=== PATIENT | female | born 2000 | race Caucasian/White ===

== ENCOUNTER → 2020-04-06 17:48 | Outpatient (CLI) | payer MEDICAID, SELFPAY ==
[2020-04-06 19:51] LABS: Chlamydia Trachomatis by PCR Negative (Negative); Neisserai gonorrhoeae by PCR Negative (Negative); Probe Check PASS; Sample Adequacy Control PASS; Specimen Processing Control PASS
== END ==
PROVIDERS: Referring Provider Obstetrics & Gynecology; Visit Provider Obstetrics & Gynecology
DX: Z11.3 Encounter for screening for infections with a predominantly sexual mode of transmission (principal)
CPT/HCPCS: 87491; 87591

== ENCOUNTER 2020-09-06 02:41 | Emergency (ER) | payer MEDICAID, SELFPAY ==
[2020-09-06 02:44] VITALS: BP 133/85; PULSE 146; RESP 18; TEMP 36.6; O2SAT 98; BMI 21.9
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
[2020-09-06] MEDS: Acetaminophen 325 MG Tablet 650 MG PO (03:02)
[2020-09-06 03:51] VITALS: BP 132/78; PULSE 88; RESP 18; O2SAT 99
== END 2020-09-06 03:53 | disposition home or self-care (01) ==
PROVIDERS: Emergency Provider Emergency Medicine
CPT/HCPCS: 73090; 73130; 99281; 99283

== ENCOUNTER → 2020-11-02 14:05 | Outpatient (CLI) | payer MEDICAID, SELFPAY ==
[2020-11-02 14:56] LABS: Absolute Lymphocyte Count 2.24 X10^3/uL (0.83-4.51); Absolute Neutrophil Count 4.8 X10^3/uL (2.0-7.7); Basophil# 0.04 X10^3/uL; Basophil% 0.5 % (0-1); Eosinophil# 0.67 X10^3/uL; Eosinophils% 8.1 % (0-5); Hematocrit 35.9 % (37-47); Hemoglobin 11.9 g/dL (12.0-15.0); Lymphocyte # 2.24 X10^3/ul (4.0); Lymphocyte % 27.1 % (19-41); Mean Corp Hgb Conc 33.1 g/dL (32-36); Mean Corpuscular Hgb 29.7 pg (27.0-32.0); Mean Corpuscular Volume 89.5 fL (81-99); Mean Platelet Vol. 9.7 fl (6.2-12.0); Monocyte# 0.49 X10^3/uL; Monocyte% 5.9 % (0-10); NRBC Flagged by Analyzer 0 % (0-5); Platelet Count 285 K/mm3 (150-450); RBC Distribution Width CV 12.8 % (11.6-14.6); RBC Distribution Width SD 42.1 fl (35.1-43.9); Red Blood Count 4.01 M/mm3 (4.2-5.4); White Blood Count 8.3 K/mm3 (4.4-11.0)
[2020-11-02 15:18] LABS: Thyroid Stim Hormone (TSH) 1.25 uIU/mL (0.358-3.74)
[2020-11-02 15:28] LABS: Color, Urine Yellow (Yellow); Glucose, Dipstick Normal (Normal); Ketone-Dipstick Negative (Negative); Leukocyte Esterase-Dipstick Negative /ul (Negative); Nitrite-Dipstick Negative (Negative); Occult Blood-Urine Negative /ul (Negative); Protein-Dipstick Negative (Negative); Urine Bilirubin Dipstick Negative (Negative); Urine Clarity Sl. Cloudy (Clear); Urine Urobilinogen Normal (Normal)
[2020-11-02 15:48] LABS: Amphetamine Urine VISTA NEGATIVE (<1000 ng/mL); Barbiturate Urine VISTA NEGATIVE (< 200 ng/mL); Benzodiazepine Urine VISTA NEGATIVE (< 200 ng/mL); Cocaine Urine VISTA NEGATIVE (< 300 ng/mL); Ecstacy Urine VISTA NEGATIVE (< 500 ng/mL); HIV - WCH Non-Reactive (Nonreactive); Hepatitis B Surface Antigen Non-Reactive (Nonreactive); Hepatitis C Antibody Non-Reactive (Nonreactive); Methadone Urine VISTA NEGATIVE (< 300 ng/mL); PCP Urine VISTA NEGATIVE (< 25 ng/mL); Rubella IgG Reactive (Nonreactive); THC Urine VISTA NEGATIVE (< 50 ng/mL); Vista UDS pH Range 7
[2020-11-08 02:38] LABS: Prenatal RPR NONREACTIVE (NONREACTIVE)
[2020-11-09 12:07] LABS: Chlamydia By Nucleic Acid AMP Negative (Negative); Gonococcus By Nucleic Acid AMP Negative (Negative)
[2020-11-09 12:54] LABS: CF, Screen Comment: (.)
== END ==
PROVIDERS: Visit Provider Obstetrics & Gynecology
DX: Z34.81 Encounter for supervision of other normal pregnancy, first trimester (principal); Z36.85 Encounter for antenatal screening for Streptococcus B
CPT/HCPCS: 36415; 80307; 81002; 81220; 84443; 85025; 86703; 86762; 86803; 87340; 87491; 87591

== ENCOUNTER 2021-02-01 19:30 | Outpatient (CLI) | payer MEDICAID, SELFPAY ==
[2021-02-01] VITALS (9 sets, daily range): BP systolic 107–119; BP diastolic 55–70; PULSE 86–98; TEMP 37.4; O2SAT 97–99; BMI 29.7
[2021-02-01] MEDS: Lactated Ringers 500 ML 999 ML IV (21:10)
[2021-02-01] MEDS: Acetaminophen/Butalbital/Caffe 1 Tablet 2 TABLET PO (21:16)
[2021-02-01 21:28] LABS: Color, Urine Yellow (Yellow); Glucose, Dipstick Normal (Normal); Ketone-Dipstick Negative (Negative); Leukocyte Esterase-Dipstick Negative /ul (Negative); Nitrite-Dipstick Negative (Negative); Occult Blood-Urine Negative /ul (Negative); Protein-Dipstick Negative (Negative); Urine Bilirubin Dipstick Negative (Negative); Urine Clarity Clear (Clear); Urine Urobilinogen Normal (Normal); Urine pH 6.5 (5.0 - 8.0)
--- NOTE | 2021-02-02 05:02 | PCM.PN.BLA ---
Progress Note Triage visit: 20-year-old G2, P1 at 27/3 weeks presenting with headache and dizziness. Patient was not feeling well this afternoon at work she took her blood pressure which was noted to be 160/112. Patient was then advised to come to labor and delivery for evaluation. She reported headache which had not resolved with Tylenol x1. Denies other symptoms including nausea, vomiting, right upper quadrant pain, visual changes. Patient was given Fioricet and 500 cc LR bolus after which she felt much improved and headache was better. Blood pressures were within normal limits. heart rate: 135/moderate variability/positive accelerations/no deceleration [place]: Quiet Patient did have 1 variable deceleration immediately upon admission, 2 further hours of monitoring following noted no further variable decelerations. Therefore status is reassuring with moderate variability and a normal baseline, and accelerations. No evidence or concerns for preeclampsia at this time as blood pressures were normotensive and she was otherwise asymptomatic. Headache resolved with Fioricet. Patient discharged home with precautions. Reassuring status. She has appointment in the office next week.
== END 2021-02-01 22:15 | disposition home or self-care (01) ==
LOC: WPOUT 19:36 → WP 19:36
PROVIDERS: Visit Provider Student in an Organized Health Care Education/Training Program
DX: O26.892 Other specified pregnancy related conditions, second trimester (principal); R51.9 Headache, unspecified; Z3A.27 27 weeks gestation of pregnancy
CPT/HCPCS: 96365; 59050; 81002; 99218; J7120; G0378

== ENCOUNTER → 2021-02-08 09:49 | Outpatient (CLI) | payer MEDICAID, SELFPAY ==
[2021-02-01 20:46] VITALS: BMI 29.7
[2021-02-08 14:07] LABS: Hematocrit 35.6 % (37-47); Hemoglobin 11.6 g/dL (12.0-15.0); Mean Corp Hgb Conc 32.6 g/dL (32-36); Mean Corpuscular Hgb 29.1 pg (27.0-32.0); Mean Corpuscular Volume 89.2 fL (81-99); Mean Platelet Vol. 9.7 fl (6.2-12.0); Platelet Count 340 K/mm3 (150-450); RBC Distribution Width SD 39.5 fl (35.1-43.9); Red Blood Count 3.99 M/mm3 (4.2-5.4); White Blood Count 10.6 K/mm3 (4.4-11.0)
[2021-02-08 14:14] LABS: Glucose Challenge Gest 1H 50g 115 mg/dL (70-140)
== END ==
PROVIDERS: Visit Provider Obstetrics & Gynecology
DX: Z34.82 Encounter for supervision of other normal pregnancy, second trimester (principal)
CPT/HCPCS: 36415; 82950; 85027

== ENCOUNTER 2021-02-28 20:25 | Outpatient (CLI) | payer MEDICAID, SELFPAY ==
[2021-02-01 20:46] VITALS: BMI 29.7
[2021-02-28 20:37] VITALS: BP 116/69; PULSE 94; TEMP 36.7; O2SAT 97
[2021-02-28 20:40] VITALS: BMI 31.2
[2021-02-28 20:54] LABS: Color, Urine Yellow (Yellow); Glucose, Dipstick Normal (Normal); Ketone-Dipstick Negative (Negative); Leukocyte Esterase-Dipstick Negative /ul (Negative); Nitrite-Dipstick Negative (Negative); Occult Blood-Urine Negative /ul (Negative); Protein-Dipstick Negative (Negative); Urine Bilirubin Dipstick Negative (Negative); Urine Clarity Clear (Clear); Urine Urobilinogen Normal (Normal); Urine pH 6.5 (5.0 - 8.0)
--- NOTE | 2021-03-05 08:42 | OB.TRI.HP_ITS ---
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 LABOR Date of Service: 02/28/21 Final RAMAN: 04/30/21 Final RAMAN Source: US <20 weeks Gestational age: 32 Weeks and 0 Days History of Present Illness: Pt arrives with cramping and back pain Allergies escitalopram [From Lexapro] Allergy (Verified 02/28/21 20:40) Hives Laboratory Studies: Laboratory Tests 02/28/21 Range/Units 20:30 Urine Color Yellow (Yellow) Urine Clarity Clear (Clear) Urine pH 6.5 (5.0 - 8.0) Ur Specific [place] 1.020 (1.002-1.030) Urine Protein Negative (Negative) mg/dl Urine Glucose (UA) Normal (Normal) mg/dl Urine Ketones Negative (Negative) mg/dl Urine Occult Blood Negative (Negative) /ul Urine Nitrite Negative (Negative) Urine Bilirubin Negative (Negative) mg/dL Urine Urobilinogen Normal (Normal) mg/dl Ur Leukocyte Esterase Negative (Negative) /ul Physical Exam Vitals: Vital Signs Temp Pulse BP Pulse Ox 98.0 F 94 116/69 97 02/28/21 20:37 02/28/21 20:37 02/28/21 20:37 02/28/21 20:37 NST - FHR Rate Baby A Baseline: 130 Variability:: Moderate Accelerations:: 15 x 15 Decelerations:: None NST Reactive:: Yes Uterine Activity:: quiet Impression/Plan 20yo at 31/2 with back pain, ruled out labor. D/c home and follow up at scheduled appointments.
== END 2021-02-28 21:35 | disposition home or self-care (01) ==
PROVIDERS: Referring Provider Obstetrics & Gynecology; Visit Provider Obstetrics & Gynecology
DX: O47.03 False labor before 37 completed weeks of gestation, third trimester (principal); M54.9 Dorsalgia, unspecified; Z3A.32 32 weeks gestation of pregnancy
CPT/HCPCS: 59025; 59050; 81002; 99218; G0378

== ENCOUNTER 2021-04-01 17:00 | Outpatient (CLI) | payer MEDICAID, SELFPAY ==
[2021-04-01 17:11] VITALS: BP 130/79; PULSE 86; TEMP 37.2
[2021-04-01 17:42] LABS: ROM Internal Control Test YES-OK TO RESULT pt. (Internal QC); ROM Patient Test Negative (Negative)
--- NOTE | 2021-04-01 19:05 | OB.TRI.NOTE ---
HPI - General HPI Narrative LEWIS HARMON, is a 20 F who presents triage with leakage of fluid PFSH Home Medications vit no.[id number] 1 ea PO DAILY 09/06/20 [History Last Taken 02/28/21 10:00] Allergy/AdvReac Type Severity Reaction Status Date / Time escitalopram [From Lexapro] Allergy Hives Verified 02/28/21 20:40 Social History Smoking Status: Current every day smoker History Elective abortions Hx Para 0 Spontaneous abortions Hx # Term Pregnancies Ectopic pregnancies Hx # Pregnancies Multiple births # of living children NST FHR Rate Baby A Baseline: 140 Variability:: Moderate Accelerations:: 15 x 15 Decelerations:: None NST Reactive:: Yes Uterine Activity:: quiet Assessment & Plan Assessment/Plan (1) : PLAN: Patient arrived to triage with leakage of fluid at 35 weeks and 6 days ROM negative and NST reactive. All reassuring. Will discharge home with follow-up at scheduled appointments.
--- NOTE | 2021-04-15 08:25 | PCM.PN.BLA ---
Progress Note Triage visit: at 35/6 presenting with leaking of fluid. ROM negative. NST: 135/mod roscoe/+accel/no decel, toco quiet. Discharge home with precautions. Follow up in office routine
== END 2021-04-01 17:55 | disposition home or self-care (01) ==
LOC: WPOUT 17:09 → WP 17:10
PROVIDERS: Referring Provider Student in an Organized Health Care Education/Training Program; Visit Provider Student in an Organized Health Care Education/Training Program
DX: O99.333 Smoking (tobacco) complicating pregnancy, third trimester (principal); F17.200 Nicotine dependence, unspecified, uncomplicated; Z3A.35 35 weeks gestation of pregnancy
CPT/HCPCS: 59025; 59050; 84112; 99218; G0378

== ENCOUNTER → 2021-04-04 16:49 | Outpatient (CLI) | payer MEDICAID, SELFPAY | PROVIDERS: Visit Provider Obstetrics & Gynecology | DX: Z36.85 Encounter for antenatal screening for Streptococcus B (principal) | CPT/HCPCS: 87081 ==

== ENCOUNTER 2021-04-16 23:52 | Inpatient (IN) | payer MEDICAID, SELFPAY ==
[2021-04-16 23:44] VITALS: TEMP 36.9; O2SAT 96
[2021-04-16 23:45] VITALS: BP 131/76; PULSE 91; O2SAT 92
[2021-04-16 23:54] VITALS: BMI 33.6
[2021-04-17] VITALS (50 sets, daily range): BP systolic 96–169; BP diastolic 50–80; PULSE 73–113; RESP 16; TEMP 36.7–37.7; O2SAT 84–99
--- NOTE | 2021-04-17 | PLAC_PTH ---
PATIENT: LEWIS HARMON LOC: [facility] U#:[id number] AGE/SX: 20/F ROOM: WP014 RE04/16/[address]: Dr. Mira Ng MD : 2000 BED: 1 DIS: 04/18/2021 SPEC #: [id number] RECD: 04/17/21 02:59 STATUS: SASHA REMisty #: [id number] PAXTON: 04/17/21 00:[address]: Mira Houser DEPT: SURGICAL PATHOLOGY RECD BY: Rachid Pindea ENTERED: 04/17/21 08:56 SP TYPE: PLACENTA OTHR DR: No Primary Care Phys Tissues: Placenta, NOS Procedures: Surgery Specimen Level V HEADER OPERATION: Vaginal delivery PRE-OP DIAGNOSIS: Suspected IUGR TISSUE SUBMITTED: Placenta MICROSCOPIC DIAGNOSIS Patricio placenta (330 gm): Umbilical cord ? trivascular with no inflammation and with focal dystrophic microcalcifications. Peripheral membranes ? no pathologic change. Placental disc ? remote infarct, increased intraparenchymal microcalcifications and Rodrigo-Dandre change. AM:dickson 04/19/2021 MICROSCOPIC DESCRIPTION Slides are reviewed. GROSS DESCRIPTION SPECIMEN: PLACENTA / CLINICAL INFORMATION: A. Weight: 2.605 kg B. Gestational Age: 38 weeks C. Sex: Male PLACENTAL WEIGHT (POST FIXATION): 330 gm PLACENTAL DIMENSIONS: 15 x 13 x 3 cm PLACENTAL SHAPE: Usual ovoid PLACENTAL WEIGHT FOR GESTATIONAL AGE: Within 10-99th percentile MEMBRANES - Present A. Insertion: Marginal B. Site of rupture from edge: 3 cm from edge of placental disc C. Color of membrane: Damian-mucoidy D. Abnormalities: None UMBILICAL CORD - Present A. Color: Damian-hitchcock B. Insertion: Central C. Length: 29 cm D. Diameter: 1.5 cm E. Number of vessels: Three F. Abnormalities: None PLACENTAL DISC - Present A. Color of surface: Damian-hitchcock B. surface abnormalities: None C. Maternal cotyledons: Intact with minimal tears D. Attached retro placental clot: No clot E. Cut surface: Dark red and spongy F. Lesions: Sections reveal a damian, indurated lesion in the peripheral portion of the placenta measuring 1.5 cm in greatest dimension. G. Separate clot: Absent SECTIONS SUBMITTED: 1. Membrane roll 2. Cord, maternal end 3. Cord, end 4. Placental disc, and maternal surfaces, lesion 5. Placental disc, and maternal surfaces 6. Placental disc, and maternal surfaces SJ:dickson 04/18/21 TC:5 CPT: 01735
[2021-04-17] MEDS: 0.9% Saline Lock 10 ML Syringe IV (00:10)
[2021-04-17] MEDS: Lactated Ringers 500 ML 999 ML IV (00:10)
[2021-04-17 00:24] LABS: Absolute Lymphocyte Count 3.47 X10^3/uL (0.83-4.51); Absolute Neutrophil Count 8.4 X10^3/uL (2.0-7.7); Basophil# 0.06 X10^3/uL; Basophil% 0.4 % (0-1); Eosinophil# 0.98 X10^3/uL; Eosinophils% 6.9 % (0-5); Hematocrit 35.4 % (37-47); Hemoglobin 11.4 g/dL (12.0-15.0); Lymphocyte # 3.47 X10^3/ul (0.83-4.51); Lymphocyte % 24.5 % (19-41); Mean Corp Hgb Conc 32.2 g/dL (32-36); Mean Corpuscular Hgb 27.3 pg (27.0-32.0); Mean Corpuscular Volume 84.9 fL (81-99); Mean Platelet Vol. 9.9 fl (6.2-12.0); Monocyte# 1.09 X10^3/uL; Monocyte% 7.7 % (0-10); NRBC Flagged by Analyzer 0 % (0-5); Neutrophil # 8.43 X10^3/uL (2.7-7.7); Neutrophil % 59.7 % (47-70); Platelet Count 355 K/mm3 (150-450); RBC Distribution Width CV 13.1 % (11.6-14.6); Red Blood Count 4.17 M/mm3 (4.2-5.4); White Blood Count 14.1 K/mm3 (4.4-11.0)
[2021-04-17] MEDS: Lactated Ringers 1,000 ML 200 ML IV (00:47)
--- NOTE | 2021-04-17 00:51 | PCM.HP.OB ---
HPI - General General Date of Admission: 04/16/21 HPI Narrative LEWIS HARMON, is a 20 F @ 38 1/7 wga who presents in l<del>a</del>bor Maternal Data Information RAMAN Calculator Estimated Delivery Date Method Current WG Current Estimate 04/30/21 Manual 39w 0d Final RAMAN: 04/30/21 Final RAMAN Source: US <20 weeks Gestational age: 38.1 [facility] Medical History (Updated 04/18/21 @ 07:[address] Kenny Ching MD) Anxiety Depression Gestational hypertension IUGR (intrauterine growth restriction) depression Home Medications vit [id number] 1 ea PO DAILY 09/06/20 [History Last Taken 04/16/21] Allergy/AdvReac Type Severity Reaction Status Date / Time escitalopram [From Lexapro] Allergy Hives Verified 04/16/21 23:57 Family History Mother Hypertension no surgical history Social History Smoking Status: Current every day smoker History 2 Elective abortions 0 Hx Para 1 Spontaneous abortions 0 Hx # Term Pregnancies 1 Ectopic pregnancies 0 Hx # Pregnancies 0 Multiple births 0 # of living children 1 Vital Signs Vital Signs Vital Signs: 04/16/21 23:44 04/16/21 23:45 04/17/21 00:36 Temperature 98.4 F Temperature Source Temporal Pulse Rate 91 91 Blood Pressure 131/76 H BP Systolic 131 BP Diastolic 76 Pulse Ox 96 92 98 04/17/21 00:41 04/17/21 00:46 04/17/21 00:49 Temperature Temperature Source Pulse Rate 96 85 85 Blood Pressure 169/80 H BP Systolic 169 BP Diastolic 80 Pulse Ox 97 99 Weight Weight: 78.1 kg Body Mass Index (BMI) 33.6 Physical Exam Const alert, oriented x3 and no apparent distress HEENT normocephalic Resp normal respiratory effort, normal air movement and clear to auscultation bilaterally Cardio regular rate and regular rhythm GI normal to inspection, nondistended, normoactive bowel sounds, soft to palpation, non-tender and non-distended Inspection: gravid Manual OB Exam: dilated 6cm Labs Labs Labs: Blood Type A POSITIVE Antibody Screen NEGATIVE Hct 35.4 % (37-47) L Hgb 11.4 g/dL (12.0-15.0) L Rubella IgG Antibody Reactive (Nonreactive) Hep Bs Antigen Non-Reactive (Nonreactive) Neisseria gonorrhoeae DNA (GINA) Negative (Negative) HIV 1&2 Antibody Non-Reactive (Nonreactive) C.trachomatis DNA (PCR) Negative (Negative) Glucose 1 Hr 50 gm 115 mg/dL (70-140) Group B Strep DNA Negative (Negative) Rhogam given: No Miscellaneous Test ACOG ANTEPARTUM RECORD - HISTORY AND PHYSICAL (04/17/2021) Name: LEWIS HARMON History of this : This is a 20 year old [id number] presents at 38 wks + 1 days gestation. OB Physician: Mira Ng MD [place]'s Physician: DR. DARSHANA CHING ...................................................................... : 00 Age: 20 Address: [address] [place] [address] Phone: H) [phone] Insurance Carrier: LOUISE [id number] Emergency Contact: MAY REDMAN [phone] ...................................................................... Final RAMAN: 04/30/21 By Ultrasound: 16w6d PARITY: (G-Total Pregnancies P-Fullterm,Premature,Induced AB,Spont AB, Ectopics, Multiple,Living) RAMAN CONFIRMATION: By LMP: 06/28/20 By First Ultrasound Exam: 04/30/21 Final RAMAN: 04/30/21 OB PROBLEM LIST: Allergic to Lexapro CF neg Declines SMA and NIPT on 11/21/20 Desires immediate Nexplanon!!! PYELECTASIS RESOLVED Has cousin w cleft lip/palate. Has brother w ongoing spinal issue requiring surgeries/specialty care since childhood. These are NOT on current Genetics Screening form. hx depression, anxiety, cutting - prior treatment with Zoloft Hx of IUGR , born AGA IUGR this EFW <10% AC <2.3% HC <2.3% , BPP/CD x2/wk ALLERGIES: Lexapro Hives and/or rash MEDICATIONS: nicotine 7 mg/24 hr daily transdermal patch apply to skin every 24h remove and repeat Multivitamins 28 mg iron-800 mcg tablet 1 tab po daily SOCIAL HISTORY: Smoking - Smoker x 3 y. Now about 1/2 PPD. ATQ. Alcohol Use - RARELY not while Diet - balanced Diet and One caffeine daily. Water 4 + bottles qd. Lifestyle - low stress lifestyle Exercise - Busy w home and 3 yo. Likes to walk. Friend has treadmill. Employer - unemployed Job Description - Illicit Drug Use - denies use of street drugs Sexual Activity - single sexual partner Residence - rents an apartment Place of - [place] Spouse-Sig Other Name - Hernandez Morales Spouse-Sig Other Occupation - trying to get a job Spouse-Sig Other Phone No - shares a phone. Children Name(s) - Jame PRIOR DELIVERY HISTORY DEL DATE GEST LAB WT LB WT OZ TYPE ANES LABOR TX 28 Oct 09 [phone] 1 Vag Epidural No ANTEPARTUM FLOW CHART VISIT GE RTC FU F F NJ U U DATE WK MD WKS HT PN HR M SS BP ED WT NJ GL D EF ST __ ____ ___ __ __ ___ __ __ __ ___ __ __ __ ___ __ March JM + + 120/66 sl 171 ne ne March JMW 1 35 + + 120/70 0 170 tr ne March JM 1 36 V on + 124/76 0 163 1+ - 1 50 -3 March JM 2 35 V on + 112/74 0 162 - - Feb JM 2 34 V on + 130/82 0 153 tr - Mar 22 JM 2 30 - + + 124/70 0 152 tr ne Feb 17 JM 2 28 - on + 94/62 0 151 tr - Jan 17 JM 4 25 - + + 98/68 0 141 - - Dec 13 SHM 4 + + 110/58 0 132 Nov 07 SHM 4 + 120/60 0 134 tr - ANTEPARTUM NOTE(S): Apr 16 2021: Apr 11 2021: US today, Good FM Apr 04 2021: increased cramping Mar 28 2021: informed of GBS and LARC at next visit, no concerns Mar 21 2021: see note Feb 21 2021: Feb 08 2021: 1 HR GTT drawn, A positive Jan 18 2021: Glucola instruction given Dec 18 2020: feeling well, comp u/s today Nov 21 2020: Comp u/s today COMPREHENSIVE ANTEPARTUM NOTE(S): Apr 16 2021: Lewis is here for NST and to sign induction papers as she did not come for yesterday's visit. NST explained as her first w this pg. Phone number updated on her chart. NST read as reactive by Dr NÚÑEZ. Paperwork signed and copies given. PRASANTH. Apr 11 2021: Lewis is here for PNV and US. Already ximena for 04-18-21 induction at 7am. Reminded to call at 5am to check availability. Instruction paper given and reviewed. Having good FM. No edema present today. No complaints. States that FOB in senior care and will be permitted release for delivery and 8 hours . Urine tr/neg. LSS Apr 08 2021: GBS neg. Apr 04 2021: 36wk, GBS collected. IUGR BPP/CD x2/wk, wnl today. IOL scheduled 38wks on 04/18/21. Desires immediate Nexplanon . WILTON Apr 04 2021: Lewis is here for visit. She relates increased cramping that is off and on. Reviewed increased discomforts in subsequent pregnancies. Call if progressive type pain. Reviewed labor, FM, and SROM. Urine dip is negative for leuks, nitrate, blood. Sp gr 1.010, ph 7. GBS today and interested in Nexplanon insertion after delivery. LARC completed and signed. LMT Induction scheduled for 03/24Mar 28 2021: Lewis is here for her 35 wk PNV. Good FM. No edema. No concerns expressed at this time. Denies ctx's. Informed of GBS and LARC at next visit. Mar 28 2021: 35wk, IUGR 10% BPP/CD today 8/8 CD wnl. Next week for visit and BPP then for x2/wk BPP/CD. Will schedule IOL at 38wks for IUGR next visit. GBS next visit. Mar 21 2021: Lewis is here for visit. She is doing well overall. States flew to [place] and was very crampy walking around the airport. Sx now resolved. Advised no issue if sx resolve. If sx worsen or persist to call. Encouraged Tdap today. FM, SROM, and labor reviewed. LMT Mar 21 2021: 34wks, u/s today IUGR EFW <10% HC <2.3% AC <2.3%. Dx with IUGR IOL at this time would be 38-39wks. Will start BPP/CD x2/wk. Educated on risks. Pt had IUGR last that results in AGA delivery. Feb 21 2021: Lewis is here for PNV. States she is feeling really well. Energetic today. Having good FM. No edema noted. Eating well and increase fluid intake. No concerns for today. Urine tr/neg. LSS Feb 21 2021: 30wk, 1hr GTT wnl. Pt with hx of IUGR but baby delivered AGA. Will get growth U/s at next visit. WILTON Feb 08 2021: Lewis is here for a PNV and US. Good FM. No edema present. Denies concerns/ questions. 1 HR GTT drawn today, pt's blood type is A+. Feb 08 2021: 28wk, repeat u/s for renal pelviectasis now resolved right 2.8mm left 6.6mm. u/s AGA today. No need for follow up u/s. 1hr GTT today. Jan 18 2021: Lewis is here for a PNV w/ her mother. Good FM. No edema present. Glucola instruction given for next appointment, advised to call if any confusion before taking test. Questions regarding when her next US will be. No concerns expressed at this time. Jan 18 2021: 25wk, b/l renal pelviectasis 5mm. for repeat u/s 28wks next visit. for 1hr GTT next visit. FOB, lewis, currently incarcerated. WILTON Dec 18 2020: Anatomy US today, b/l pyelectasis 5mm, however, anatomy otherwise wnl, EFW 52nd%. POSTERIOR placenta. Ok for . [place] Maye, labor precautions reviewed. Nov 06 2020: Shane past medical history includes a chickenpox vaccine, UTIs w pregnancies, anxiety and depression w a history of cutting in 2017. The last three came from past chart entries. EPDS on prev visit is 2. She has a copy of What to Expect. They have no cats but she is aware of litter box issues. Lewis nursed her first baby in the hospital then she refused at home so she used formula. [facility] Isabel Nov 06 2020: TELEHEALTH NOB--- Lewis is a 19 yo G 2 P 1 unemployed mom w currently unknown RAMAN. She is approx 16-18 w gestation planning a vag del at [facility] w epidural, using Dr Monique Ching for post disch ped care and to breastfeed. FOB is Hernandez Morales, unemployed but looking for work and this is his first baby. They have an apartment together and are happy about the pg. Lewis is allergic to Lexapro but had NK Nov 02 2020: Lewis is her with FOB (Hernandez) for Missed menses. G2 P 1. LMP approx. 08/28/20. UPT in office positive. Both her and FOB are happy about . She [facility] to [facility], and UPT done, was told she was 7 w + 5 d and RAMAN 05/03/21. She still smokes daily, ATQ. She does not take Vit. advised her that she should start taking Vit. Pkt and What to Exp Nov 02 2020: as above. No complaints. Not currently working, considering employment at this time. Lives with FOBHernandez, who is here with her today. This is his first child and her second. Lewis smokes 4-5 cigarettes per day. Denies nausea, vomiting, bleeding, pain or cramping. + FM. She is uncertain of her dates. Recalls RAMAN [facility], but also reports she was approximately 7 wee REVIEW OF SYSTEMS: GENERAL - Denies fever, or chills SKIN - Denies rash, new skin lesions, or change in moles EYES - Denies blurred vision, or change in visual acuity EARS - Denies ear pain, or difficulty hearing NOSE - Denies nasal congestion, discharge, or bleeding MOUTH - Denies sore throat, or difficulty swallowing NECK - Denies pain or swelling RESPIRATORY - Denies shortness of breath, cough, wheezing CARDIOVASCULAR - Denies palpitations, chest pain, orthopnea, PND, peripheral edema, syncope or claudication GASTROINTESTINAL - Denies nausea, vomiting, diarrhea, constipation, Denies abdominal pain, melena and or bright red blood GENITOURINARY - Denies dysuria, frequency of urination, urgency, or hesitancy MUSCULOSKELETAL - Denies joint or muscle pain, or back pain NEUROLOGICAL - Denies localized numbness, weakness, or tingling PSYCHIATRIC - Denies depression, anxiety, substance abuse or suicide attempts ENDOCRINE - Denies heat or cold intolerance, weight loss or gain, increasing thirst HEMATO-IMMUNOLOGIC - Denies easy bruising, bleeding, oral ulcerations or recurrent infections GENETICS SCREENING: Age 35+ years: No Thalassemia: No Neural Tube Defect: No Down Syndrome: No OLIVA-SACHS: No Sickle Cell Disease: No Hemophilia: No Musc. Dystrophy: No Cystic Fibrosis: No-declines screening [place] Chorea: No Mental Retardation: No Fragile X: No Other genetic: yes, cousin cleft lip/palate Other defects: yes, cousin cleft lip/palate SABs/still births: No Drugs since LMP: No INFECTION HISTORY: High risk AIDS: No High risk Hepatitis: No Exposed to TB: No Exposed to Herpes: No Rash/viral illness since LMP: No History of STD: No MENSTRUAL HISTORY: *Menses Regularity: IrregularFrequency: variableBCP's at Conception: No* PAST SUMMARY: PARITY: 1. Total Pregnancies............ 2 2. Full Term Pregnancies........ 1 3. Premature.................... 0 4. Abortions - Induced.......... 0 5. Abortions - Spontaneous...... 0 6. Ectopics..................... 0 7. Multiple Births.............. 0 8. Living Children.............. 1 PAST #1: Date of :.................. 10/20/17 Gestation Weeks:................ 39 Length of labor(hours):......... 9 Sex:............................ F Weight-lbs:............... 6 Weight-oz:................ 1 Type of Delivery:............... Vag Type of Anesthesia:............. Epidural Place of Delivery:.............. [place] Treatment of Labor?:.... No Comment: IUGR,PIH, PPD PHYSICAL EXAMINATION General Appearence: 20 yo female in no acute distress Vital Signs: AF, VSS Heart: RRR without rubs or gallops Lungs: CTA x 2 Breasts: deferred Abdomen: gravid Pelvis: Cervix: Presentation: cephalic Station: Fetus: Size: AGA Movement: present Heart: present LAB TEST(S) ORDERED SINCE:08/03/20 11/20/2020 MISCELLANEOUS LAB PROCEDURE 11/09/2020 CYSTIC FIBROSIS PROF 11/09/2020 CHLAMYDIA/GC GINA APTIMA 11/08/2020 RPR 11/02/2020 URINE DRUG SCREEN (VISTA) 11/02/2020 URINALYSIS, ROUTINE (DIPSTICK) 11/02/2020 THYROID STIM HORMONE (TSH) 11/02/2020 RUBELLA IGG 11/02/2020 T AND S-NO CHARGE W/PNP 11/02/2020 HIV - WCH 11/02/2020 HEPATITIS C ANTIBODY 11/02/2020 HEPATITIS B SURFACE ANTIGEN 11/02/2020 CBC W/DIFF, AUTOMATED 04/16/2021 CBC W/DIFF, AUTOMATED 04/07/2021 RULE OUT BETA STREP (GRP. B) 04/01/2021 (ROM) RUPTURE OF MEMBRANES 02/28/2021 URINALYSIS, ROUTINE (DIPSTICK) 02/08/2021 GLUCOSE CHALLENGE GEST 1H 50G 02/08/2021 CBC-COMPLETE BLOOD CNT NO DIFF 02/01/2021 URINALYSIS, ROUTINE (DIPSTICK) == ==== Order Observation Description Value Ref_Range A* Site == ==== CBC W/DIFF, AUT NOTE JONES CBC W/DIFF, AUT WBC 14.1 K/mm3 4.4-11.0 H ML CBC W/DIFF, AUT RBC 4.17 M/mm3 4.2-5.4 L ML CBC W/DIFF, AUT HGB 11.4 g/dL 12.0-15.0 L ML CBC W/DIFF, AUT HCT 35.4 37-47 L ML CBC W/DIFF, AUT MCV 84.9 fL 81-99 ML CBC W/DIFF, AUT MCH 27.3 pg 27.0-32.0 ML CBC W/DIFF, AUT MCHC 32.2 g/dL 32-36 ML CBC W/DIFF, AUT RDW CV 13.1 11.6-14.6 ML CBC W/DIFF, AUT RDW SD 40.0 fl 35.1-43.9 ML CBC W/DIFF, AUT PLT 355 K/mm3 150-450 ML CBC W/DIFF, AUT MPV 9.9 fl 6.2-12.0 ML CBC W/DIFF, AUT NEUT% 59.7 47-70 ML CBC W/DIFF, AUT LY% 24.5 19-41 ML CBC W/DIFF, AUT MONO% 7.7 0-10 ML CBC W/DIFF, AUT EO% 6.9 0-5 H ML CBC W/DIFF, AUT BASO% 0.4 0-1 ML CBC W/DIFF, AUT IG% 0.800 0.0-0.9 ML IG% - Immature Granulocytes (promyelocytes, myelocytes and metamyelocytes) > 1% indicates that a LEFT SHIFT is Present. CBC W/DIFF, AUT ABSOLUTE NEUT 8.4 X10 3/uL 2.0-7.7 H ML CBC W/DIFF, AUT ABSOLUTE LYMPH 3.47 X10 3/uL 0.83-4.51 ML CBC W/DIFF, AUT NUCLEATED RBC 0 0-5 ML RULE OUT BETA S NOTE JONES (ROM) RUPTURE O NOTE JONES (ROM) RUPTURE O ROM Negative Negative ML Amniotic fluid not present indicates No Rupture of Membranes at time of specimen collection. URINALYSIS, ROU NOTE JONES URINALYSIS, ROU COLOR Yellow Yellow ML URINALYSIS, ROU URINE CLARITY Clear Clear ML URINALYSIS, ROU GLUCOSE, UR Normal mg/dl Normal ML URINALYSIS, ROU BILIRUBIN URINE Negative mg/dL Negative ML URINALYSIS, ROU KETONE UR Negative mg/dl Negative ML URINALYSIS, ROU SP.GR. DIPSTX 1.020 1.002-1.030 ML URINALYSIS, ROU PH UR 6.5 5.0 - 8.0 ML URINALYSIS, ROU PROT DIPSTX Negative mg/dl Negative ML URINALYSIS, ROU UROBILI Normal mg/dl Normal ML URINALYSIS, ROU NITRITE Negative Negative ML URINALYSIS, ROU OCCULT BLOOD-UR Negative /ul Negative ML URINALYSIS, ROU LEUK ESTERASE Negative /ul Negative ML GLUCOSE CHALLEN NOTE JONES GLUCOSE CHALLEN GLU GEST 50G 1H 115 mg/dL 70-140 ML CBC-COMPLETE BL NOTE JONES CBC-COMPLETE BL WBC 10.6 K/mm3 4.4-11.0 ML CBC-COMPLETE BL RBC 3.99 M/mm3 4.2-5.4 L ML CBC-COMPLETE BL HGB 11.6 g/dL 12.0-15.0 L ML CBC-COMPLETE BL HCT 35.6 37-47 L ML CBC-COMPLETE BL MCV 89.2 fL 81-99 ML CBC-COMPLETE BL MCH 29.1 pg 27.0-32.0 ML CBC-COMPLETE BL MCHC 32.6 g/dL 32-36 ML CBC-COMPLETE BL RDW CV 12.0 11.6-14.6 ML CBC-COMPLETE BL RDW SD 39.5 fl 35.1-43.9 ML CBC-COMPLETE BL PLT 340 K/mm3 150-450 ML CBC-COMPLETE BL MPV 9.7 fl 6.2-12.0 ML URINALYSIS, ROU NOTE JONES URINALYSIS, ROU COLOR Yellow Yellow ML URINALYSIS, ROU URINE CLARITY Clear Clear ML URINALYSIS, ROU GLUCOSE, UR Normal mg/dl Normal ML URINALYSIS, ROU BILIRUBIN URINE Negative mg/dL Negative ML URINALYSIS, ROU KETONE UR Negative mg/dl Negative ML URINALYSIS, ROU SP.GR. DIPSTX 1.020 1.002-1.030 ML URINALYSIS, ROU PH UR 6.5 5.0 - 8.0 ML URINALYSIS, ROU PROT DIPSTX Negative mg/dl Negative ML URINALYSIS, ROU UROBILI Normal mg/dl Normal ML URINALYSIS, ROU NITRITE Negative Negative ML URINALYSIS, ROU OCCULT BLOOD-UR Negative /ul Negative ML URINALYSIS, ROU LEUK ESTERASE Negative /ul Negative ML MISCELLANEOUS L NOTE JONES MISCELLANEOUS L MISC LAB TEST ML TEST RESULT LIMITS SMN1 Copy Number Analysis Genetic Counselor: Not applicable Specimen Type: Peripheral Blood Ethnicity: Not Provided Indication: Not Provided SMA Results: Note Disease (Gene) Results Interpretation Spinal muscular atrophy NEGATIVE 2 copies of SMN1; (SMN1) negative for c.*3+80T>G SNP. This result reduces, but does not eliminate the risk to be a carrier. Information regarding clinical indication may provide a more detailed interpretation. For ethnic-specific risk revisions with no family history see Information Table. General Comments Note Genetic counseling services are available. To access [facility] please visit [email or web address] or call [phone] ([phone]). Additional Clinical Info Note Spinal muscular atrophy (SMA) is an autosomal recessive neurodegenerative disorder with variable age at onset and severity, characterized by progressive degeneration of the lower motor neurons in the spinal cord and brain stem, leading to muscle weakness, and in its most common form, respiratory failure by age two. Complications of SMA may include poor weight gain, sleep difficulties, pneumonia, scoliosis, and joint deformities. In severely affected individuals, abnormal ultrasound findings may include congenital joint contractures, polyhydramnios, and decreased movement (Nori, PMID:[id number]). Treatment is supportive. Targeted therapies may be available for some individuals. Approximately 94% of affected individuals have 0 copies of the SMN1 gene; in these individuals an increase in the number of copies of the SMN2 gene correlates with reduced disease severity (Dustin, PMID:[id number]). Individuals with one copy of the SMN1 gene are predicted to be carriers of SMA; those with two or more copies have a reduced carrier risk. For individuals with two copies of the SMN1 gene, the presence or absence of the variant c.*3+80T>G correlates with an increased or decreased risk, respectively, of being a silent carrier (2+0) (Jai, PMID [id number]; Lazaro, PMID [id number]). Method/Limitations: Note Spinal muscular atrophy: The copy number of SMN1 exon 7 is assessed relative to internal standard reference genes by quantitative polymerase chain reaction (qPCR). A mathematical algorithm calculates 0, 1, 2 and 3 copies with statistical confidence. When no copies of SMN1 are detected, the primer and probe binding sites are sequenced to rule out variants that could interfere with copy number analysis and SMN2 copy number is assessed by digital droplet PCR analysis relative to an internal standard reference gene. For carrier screening, when two copies of SMN1 are detected, allelic discrimination qPCR targeting c.*3+80TG in SMN1 is performed. Limitations: False positive or false negative results may occur for reasons that include genetic variants, blood transfusions, bone marrow transplantation, somatic or tissue-specific mosaicism, mislabeled samples, or erroneous representation of family relationships. Information Table Note SMA risk reductions for individuals with no family history Disorder (Gene) Reference Sequence Spinal Muscular Atrophy (SMN1) [id number] Population Detection Pre-test Post-test risk of Post-test Rate carrier being a carrier risk of (Copy risk with 2 copies being a number + carrier SNP) POSITIVE NEGATIVE with 3 for the for the copies c.*3+80T>G c.*3+80T>G SNP SNP 90.3% 1 in 72 1 in 34 1 in 375 1 in 4200 Belarusian Ashkenazi 92.8% 1 in 67 High risk 1 in 918 1 in 5400 Christianity 93.6% 1 in 59 High risk 1 in 907 1 in 5600 95.0% 1 in 47 1 in 29 1 in 921 1 in 5600 92.6% 1 in 68 1 in 140 1 in 906 1 in 5400 Mixed or For counseling purposes, consider using the Other ethnic ethnic background with the most conservative Background risk estimates. includes carriers who are silent carriers (2+0) and Carriers with a pathogenic variant not detected in this Assay Lazaro PMID [id number]; Melissa PMID [id number]; Therese, PMID [id number] Disclaimer: Note This test was developed and its performance characteristics determined by [employer], [employer]. It has not been cleared or approved by the Food and Drug Administration. [facility] is a business unit of [facility], a wholly-owned subsidiary of [employer]. [facility]) is a registered service simón of [employer]. Testing performed at [facility], [address], [place] [address] Holli Francisco, PhD, [facility], [employer] This document contains private and confidential information protected by state and federal law. If you have received this document in error, please call SMN1 Copy Number Analysis PDF Director Review Note Muna Lee, PhD, [facility] TESTING PERFORMED AT [facility]. ORIGINAL REPORT ON FILE IN LAB CONTAINS ADDITIONAL TEST SITE INFORMATION. CHLAMYDIA/GC NA NOTE JONES CHLAMYDIA/GC NA CHLAMY,NUC ACID Negative Negative LC CHLAMYDIA/GC NA GC BY NUC ACID Negative Negative LC CYSTIC FIBROSIS NOTE JONES CYSTIC FIBROSIS CF, SCREEN Comment: . LC RESULTS: Negative for 32 mutations analyzed INTERPRETATION: This individual is negative for the mutations analyzed. This negative result may need further interpretation depending on the clinical indication. This result reduces but does not eliminate the risk to be a CF carrier. COMMENTS: The detection rate varies with ethnicity and is listed below. The presence of an undetected mutation in the CF gene cannot be ruled out. In the absence of family history, the remaining risk that a person with a negative result could have at least one CF mutation is listed in the table. If there is a family history of CF, these risk figures do not apply. As detailed information regarding this individual's family history would permit a more accurate assessment of this individual's risk to be a carrier of cystic fibrosis, please contact [facility] at for a revised report. Mutation Detection Detection rates are based on mutation Rates among Ethnic frequencies in patients affected with Groups cystic fibrosis. Among individuals with an atypical or mild presentation (e.g. congenital absence of the vas deferens, pancreatitis) detection rates may vary from those provided here: Carrier risk reduction when no family history Detection Ethnicity Rate Ashkenazi 12/18 to 97% Christianity 12/17 to 90% (non-) -Belarusian to 69% 46 to 73% to 55% This interpretation is based on the clinical and family relationship information provided and the current understanding of the molecular genetics of this condition. MUTATIONS ANALYZED: G85E V520F B6591K 2183AA to G R117H G542X P7077P 2184delA R334W S549N 394delTT 2789+5G to A R347H S549R 621+1G to T 3120+1G to A R347P G551D 711+1G to T 3659delC A455E R553X 1078delT 3849+10kbC to T [id number] R560T 1717-1G to A 3876delA [id number] F9091I 1898+1G to A 3905insT METHODS/LIMITATIONS: DNA is isolated from the sample and tested for the 32 CF mutations on the [employer] Array Platform ([employer]). Regions of the CFTR gene are amplified enzymatically and subjected to a solution-phase multiplex allele-specific primer extension with subsequent hybridization to a bead array and fluorescence detection. Polymorphisms F508C, I506V and I507V are included in this panel to rule out false positive [id number] homozygotes. Reflex testing of 5T is included in the panel for R117H interpretation. False positive or negative results may occur for reasons that include genetic variants, blood transfusions, bone marrow transplantation, erroneous representation of family relationships or contamination of a sample with maternal cells. REFERENCES: 1. Updates on Carrier Screening for Cystic Fibrosis. (2011) Am J Ob Gynecol 117(4):4767-8556 2. Yordan et al. (2004) Martine Med 6:387-91 3. Tony et al. (2002) Martine Med 4:379-391 4. Preconception and carrier screening for cystic fibrosis: (2001)ACOG.ACMG publication Results Released By: Obie Gudino, Ph.D., Mid Level Project Manager Released By: Obie Gudino, Ph.D., Director The assay provides information intended to be used for carrier screening in adults of reproductive age, as an aid in screening, and as a confirmatory test for another medically established diagnosis in newborns and children. The test is not indicated for use in diagnostic testing, pre-implantation screening, or for any stand-alone diagnostic purposes without confirmation by another medically established diagnostic product or procedure. Performed at: =G - [facility] [address] [place] [id number] [employer] B[employer] Developer: Noemi Mcbride MD, Phone: [phone] Performed at: - [facility] [address] [place], [place] [id number] [employer] Developer: Jose Nina [facility], Phone: [phone] RPR NOTE JONES RPR RPR NONREACTIVE NONREACTIVE ML Reason for Type AND Screen/Red Cells: Surgery? N [facility]~[address] [facility] [place], [address]~ T AND BLOOD TYPE GEL A POSITIVE N ML T AND AB SCREEN GEL NEGATIVE N ML HEPATITIS C ANT NOTE JONES HEPATITIS C ANT HEPATITIS C AB Non-Reactive Nonreactive ML Non Reactive: < 0.8 Equivocal: >/= 0.8 to < 1.0 Reactive: >/= 1.0 The CDC recommends that a reactive/equivocal HCV antibody result be followed up by the HCV Nucleic Acid Amplification test ([id number]) HEPATITIS B ADRYAN NOTE JONES HEPATITIS B ADRYAN HEPB SURFACE AG Non-Reactive Nonreactive ML HIV - [facility] NOTE JONES HIV - [facility] HIV - [facility] Non-Reactive Nonreactive ML RUBELLA IGG NOTE JONES RUBELLA IGG RUBELLA IGG Reactive Nonreactive ML Antibody Results Interpretation of Immune Status Non Reactive Presumed Non-Immune Equivocal Equivocal Reactive Presumed Immune URINE DRUG SCRE NOTE JONES URINE DRUG SCRE TO BE CONFIRMED ML CONFIRMATORY TESTING FOR ALL POSITIVE URINE DRUG SCREEN RESULTS WILL ONLY BE SENT OUT UPON PHYSICIAN ORDER. VISTA Urine Drug Screen methods provide only preliminary analytical test results. A more specific alternate chemical method must be used in order to obtain a confirmed analytical result. Gas chromatography/mass spectrometery (GC/MS) is the preferred confirmatory method. Clinical consideration and professional judgement should be applied to any drug of abuse test result, particularly when preliminary positive results are used. URINE TCA TESTING MUST BE ORDERED SEPARATELY. USE TEST MNEMONIC: UTCA URINE DRUG SCRE VISTA UDS PH 7 ML URINE DRUG SCRE AMPHETAMINES NEGATIVE <1000 ng/mL ML URINE DRUG SCRE BARBITIURATES NEGATIVE < 200 ng/mL ML URINE DRUG SCRE BENZODIAZIPINE NEGATIVE < 200 ng/mL ML URINE DRUG SCRE COCAINE NEGATIVE < 300 ng/mL ML URINE DRUG SCRE ECSTACY NEGATIVE < 500 ng/mL ML URINE DRUG SCRE METHADONE NEGATIVE < 300 ng/mL ML URINE DRUG SCRE OPIATES NEGATIVE < 300 ng/mL ML URINE DRUG SCRE PCP NEGATIVE < 25 ng/mL ML URINE DRUG SCRE THC NEGATIVE < 50 ng/mL ML URINALYSIS, ROU NOTE JONES URINALYSIS, ROU COLOR Yellow Yellow ML URINALYSIS, ROU CLARITY Sl. Cloudy Clear ML URINALYSIS, ROU GLUCOSE, UR Normal mg/dl Normal ML URINALYSIS, ROU BILIRUBIN URINE Negative mg/dL Negative ML URINALYSIS, ROU KETONE UR Negative mg/dl Negative ML URINALYSIS, ROU SP.GR. DIPSTX 1.010 1.002-1.030 ML URINALYSIS, ROU PH UR 7.0 5.0 - 8.0 ML URINALYSIS, ROU PROT DIPSTX Negative mg/dl Negative ML URINALYSIS, ROU UROBILI Normal mg/dl Normal ML URINALYSIS, ROU NITRITE UR Negative Negative ML URINALYSIS, ROU OCCULT BLOOD-UR Negative /ul Negative ML URINALYSIS, ROU LEUK ESTERASE Negative /ul Negative ML THYROID STIM HO NOTE JONES THYROID STIM HO TSH 1.25 uIU/mL 0.358-3.74 ML CBC W/DIFF, AUT NOTE JONES CBC W/DIFF, AUT WBC 8.3 K/mm3 4.4-11.0 ML CBC W/DIFF, AUT RBC 4.01 M/mm3 4.2-5.4 L ML CBC W/DIFF, AUT HGB 11.9 g/dL 12.0-15.0 L ML CBC W/DIFF, AUT HCT 35.9 % 37-47 L ML CBC W/DIFF, AUT MCV 89.5 fL 81-99 ML CBC W/DIFF, AUT MCH 29.7 pg 27.0-32.0 ML CBC W/DIFF, AUT MCHC 33.1 g/dL 32-36 ML CBC W/DIFF, AUT RDW CV 12.8 % 11.6-14.6 ML CBC W/DIFF, AUT RDW SD 42.1 fl 35.1-43.9 ML CBC W/DIFF, AUT PLT 285 K/mm3 150-450 ML CBC W/DIFF, AUT MPV 9.7 fl 6.2-12.0 ML CBC W/DIFF, AUT NEUT% 58.0 % 47-70 ML CBC W/DIFF, AUT LY% 27.1 % 19-41 ML CBC W/DIFF, AUT MONO% 5.9 % 0-10 ML CBC W/DIFF, AUT EO% 8.1 % 0-5 H ML CBC W/DIFF, AUT BASO% 0.5 % 0-1 ML CBC W/DIFF, AUT IM GRAN % 0.400 % 0.0-0.9 ML IG% - Immature Granulocytes (promyelocytes, myelocytes and metamyelocytes) > 1% indicates that a LEFT SHIFT is Present. CBC W/DIFF, AUT ABSOLUTE NEUT 4.8 X10 3/uL 2.0-7.7 ML CBC W/DIFF, AUT ABSOLUTE LYMPH 2.24 X10 3/uL 0.83-4.51 ML CBC W/DIFF, AUT NRBC, FLAGGED 0 % 0-5 ML Group B Beta Streptococcus is not isolated. Assessment & Plan (1) 38 weeks gestation of : PLAN: Epidural per patient request Expectant management
[2021-04-17] MEDS: fentaNYL-bupivacaine (epidural) 100 ML BAG EPIDURAL (01:01)
[2021-04-17] MEDS: Oxytocin 30 units/NS 500 ml 30 UNITS/500 ML IV.SOLN 334 UNITS IV (01:18)
--- NOTE | 2021-04-17 01:41 | EX.PCM.OBRPT ---
Assessment & Plan (1) 38 weeks gestation of : (2) (spontaneous vaginal delivery): Maternal Data Information RAMAN Calculator Estimated Delivery Date Method Current WG Current Estimate 04/30/21 Manual 38w 1d Vaginal Delivery Maternal Presentation Maternal Presentation: Active Labor Operative Information Date of Procedure: 04/17/21 Pre-Operative Diagnosis: 38 1/7 weeks gestation, labor, IUGR Post-Operative Diagnosis: 38 1/7 weeks gestation, labor, Surgery / Procedure Performed: Spontaneous Vaginal Delivery Type of Anesthesia: Epidural Anesthesiologist: Dr. Lee Estimated Blood Loss: 200 ml Time of Delivery: 01:13 Findings Description of Procedure: Patient fully dilated and pushed to deliver a vigorous infant. The was placed on the maternal abdomen and further attended by nursery personnel. The cord was doubly clamped and cut. The placenta delivered spontaneously and appeared intact on inspection. Fundus was firm. There was good hemostasis. A first degree perineal laceration was repaired with 3-0 Vicryl Rapide. Presentation: Vertex Amniotic Membrane Rupture Type: Spontaneous Time of Membrane Rupture: 04/17/21 0017h Amniotic Fluid Description: Clear Placental Delivery Description: Spontaneous Placenta Disposition: [facility] Specimen(s) Removed: placenta Cord Vessel Description: 3 Vessels Cord Entanglement: Around neck x 1, tight Nuchal Cord Compression: Without compression A Gender: Male (1 minute): 9 (5 minute): 9 Delayed Cord Clamping: Yes Post Vaginal Delivery Medications Given After Delivery: IV Pitocin Episiotomy Description: None Laceration: Perineal Extension/lac and 1st degree Complication Complications: None
[2021-04-17 01:56] LABS: ALB/GLOB Ratio 0.6 RATIO (0.9-2.4); AST(SGOT) 11 U/L (15-37); Alanine Aminotransfer ALT/SGPT 14 U/L (13-56); Albumin, Serum 2.6 g/dL (3.2-5.0); Alkaline Phosphatase 146 U/L (45-117); Anion Gap 8 (5-15); BUN 10 mg/dL (7-18); BUN/Creat Ratio 14.8 RATIO (10-20); Calcium,Total 8.6 mg/dL (8.5-10.1); Chloride 106 mmol/L (98-107); Creatinine, Serum 0.68 mg/dL (0.55-1.02); EST Glomerular Filtration Rate 118 mL/min (>60); Est Glom Filt Rate - Afr Amer 143 mL/min (>60); Estimated Creatinine Clearance 94.79 ml/min; Globulin 4.7 g/dL (2.2-4.2); Glucose 94 mg/dL (74-106); LDH 152 U/L (84-246); Potassium 3.5 mmol/L (3.5-5.1); Protein, Total 7.3 g/dL (6.4-8.2); Sodium Level 138 mmol/L (136-145); Uric Acid 3.8 mg/dL (2.6-6.0)
[2021-04-17] MEDS: Ibuprofen 600 MG Tablet PO (04:32)
[2021-04-17] MEDS: Acetaminophen 500 MG Tablet 1000 MG PO (08:28)
[2021-04-17] MEDS: Prenatal Vits Tablet 1 TABLET PO (12:10)
[2021-04-17] MEDS: Etonogestrel 68 MG IMPLANT SC (15:59)
--- NOTE | 2021-04-17 16:06 | PN.OBGYN_ITS ---
Subjective Subjective Patient desires Nexplanon device to be placed Objective Data Objective Data Vital Signs: Vital Signs Temp Pulse Resp BP Pulse Ox 98.8 F 88 16 109/66 97 04/17/21 12:09 04/17/21 12:09 04/17/21 12:09 04/17/21 12:09 04/17/21 08:13 Oxygen Delivery Method Room Air Weight: 172 lb 2.896 oz Body Mass Index (BMI) 33.6 Intake & Output: Intake and Output for Last 24 Hours 04/15/21 04/16/21 04/17/21 23:59 23:59 23:59 Intake Total 1086.67 / 1086.67 Output Total 650 / 650 Balance 436.67 / 436.67 Lab / Micro Data Result Diagrams: 04/17/21 00:05 04/17/21 00:05 Labs: Laboratory Results - last 24 hr 04/17/21 04/17/21 04/17/21 00:05 00:05 00:05 WBC 14.1 H RBC 4.17 L Hgb 11.4 L Hct 35.4 L MCV 84.9 MCH 27.3 MCHC 32.2 RDW Std Deviation 40.0 RDW Coeff of Nina 13.1 Plt Count 355 MPV 9.9 Immature Gran % (Auto) 0.800 Neut % (Auto) 59.7 Lymph % (Auto) 24.5 [place] % (Auto) 7.7 Eos % (Auto) 6.9 H Baso % (Auto) 0.4 Absolute Neuts (auto) 8.4 H Absolute Lymphs (auto) 3.47 Nucleated RBC % 0 Sodium 138 Potassium 3.5 Chloride 106 Carbon Dioxide 24.0 Anion Gap 8 BUN 10 Creatinine 0.68 Estim Creat Clear Calc 94.79 Est GFR (MDRD) Af Amer 143 Est GFR (MDRD) Non-Af 118 BUN/Creatinine Ratio 14.8 Glucose 94 Uric Acid 3.8 Calcium 8.6 Total Bilirubin 0.20 AST 11 L ALT 14 Alkaline Phosphatase 146 H Lactate Dehydrogenase 152 Total Protein 7.3 Albumin 2.6 L Globulin 4.7 H Albumin/Globulin Ratio 0.6 L Blood Type A POSITIVE Antibody Screen NEGATIVE Micro: Microbiology 04/17/21 00:05 Interface Orders SARS-CoV-2 Antigen (Rapid) - Final Physical Exam Const alert, oriented x3, no apparent distress, average body habitus and healthy appearing HEENT normocephalic Head and Scalp: atraumatic Neck full ROM Resp normal respiratory effort, no retractions and no use of accessory muscles Extremity normal to inspection, full ROM and no clubbing, cyanosis or edema Skin no rashes or lesions noted Psych mental status grossly normal, affect normal, speech normal and activity/motor behavior normal Assessment & Plan (1) (spontaneous vaginal delivery): PLAN: Patient seen and examined, desires Nexplanon device. Risk benefits alternatives discussed with the patient include but are not limited to visceral or vascular injury, blood loss need for transfusion, infection. Patient state understanding wish to proceed. All questions were answered. 3 cc 1% Xylocaine were injected 8 cm superior to the epicondyle and 3 cm inferior to the bicipital tricipital groove, Nexplanon device was inserted with Nexplanon environmental health sanitarian Steri- Strips were placed, pressure dressing was placed, good hemostasis.
[2021-04-18] VITALS (9 sets, daily range): BP systolic 93–125; BP diastolic 52–63; PULSE 80–98; RESP 16–18; TEMP 36.3–36.9; O2SAT 97–98
--- NOTE | 2021-04-18 07:28 | PCM.DC ---
Discharge Instructions Diet Discharge Diet: No restrictions Activity Discharge Activity: Return to Normal Activity, May Drive, May Shower and - (No tub baths for 2 weeks) May resume sexual activity in: 4-6 weeks Lifting Restrictions: No lifting over 25 pounds for 2 to 3 weeks Dressing / Incision Call your doctor if your incision/area has: Continuous Slow Oozing and Foul Smelling Discharge Call your doctor if you observe: Fever of 101 or Higher, Shortness of breath and Chest pain Follow Up Care Please Follow Up With: Kenny Dee MD When: 2-week telehealth visit, 4 to 6-week visit Test Results: Test results from this visit will be discussed in further detail at your follow-up appointment, if applicable. Discharge Plan Admission Admit Date/Time: 04/16/21 23:52 Attending Provider: Mira Houser Primary Care Provider: Care PhysicianShakila Primary Discharge Orders/Prescriptions Prescriptions: No Action vit no.[id number] 1 EACH tablet 1 ea PO DAILY RF: 0 Disposition Discharge Orders: Discharge Patient (Routine); Ordered 04/18/21 Ordered By: Dr. Kenny Dee
--- NOTE | 2021-04-18 07:29 | PN.OBGYN_ITS ---
Subjective Subjective No overnight complaints. Pain well controlled. Objective Data Objective Data Vital Signs: Vital Signs Temp Pulse Resp BP Pulse Ox 98.1 F 84 16 93/55 L 97 04/18/21 04:31 04/18/21 04:31 04/18/21 04:31 04/18/21 04:31 04/18/21 04:31 Oxygen Delivery Method Room Air Weight: 172 lb 2.896 oz Body Mass Index (BMI) 33.6 Intake & Output: Intake and Output for Last 24 Hours 04/16/21 04/17/21 04/18/21 23:59 23:59 23:59 Intake Total 1086.67 / 1086.67 Output Total 650 / 650 Balance 436.67 / 436.67 Lab / Micro Data Result Diagrams: 04/17/21 00:05 04/17/21 00:05 Micro: Microbiology 04/17/21 00:05 Interface Orders SARS-CoV-2 Antigen (Rapid) - Final Physical Exam Const alert, oriented x3 and no apparent distress HEENT normocephalic and moist oral mucous membranes Head and Scalp: atraumatic Eyes PERRL Neck full ROM and no lymphadenopathy Resp normal respiratory effort, no retractions and no use of accessory muscles GI normal to inspection, nondistended, normoactive bowel sounds Extremity normal to inspection, full ROM and no clubbing, cyanosis or edema Psych mental status grossly normal, affect normal, speech normal and activity/motor behavior normal Assessment & Plan (1) (spontaneous vaginal delivery): PLAN: day 1 status post delivery of IUGR baby at 38 weeks. Breast-feeding. Nexplanon placed in hospital. Okay to discharge home today if okay with senior counsel commercial
--- NOTE | 2021-04-18 10:02 | CASEMGMT ---
Social Work Assessment Labor and Delivery Unit Patient Address: [address] [place] [address] Phone number: [phone] Date of Referral: 04.17.2021 Time of Referral: 829 Referred By: Social Work identification Date of Intervention: 04.18.2021 Time of Intervention: 929 Reason for Referral: conern for maternal substance use history; maternal history of depression and anxiety History obtained from: Medical records including prior social work assessment, and mother of baby (MOB) Сергей Hylton Household composition: DOMINIK reports to live with her brother Roberto yHlton and Roberto's girlfriend Neena for the last 3 months. Reports home situation is safe and adequate, and can reside in this home as long as needed. DOMINIK's older daughter is residing in this home and plans to take there as well. Patient's parent/guardian status: DOMINIK is a 20 year old single female, involved with reported father of baby (FOB) Hernandez Morales (age 19) for the last 2 years. MOB denies any form of abuse, control, intimidation in this relationship. [place] is the first for FOB and second for MOB. DOMINIK's minor children include: Daughter, Jame Hylton, born 10.20.2017, per past assessment the reported father is Babatunde Barnhart. baby, El Morales, born 04.17.2021, FOB Hernandez Morales. Medical History: MOB G2, P1 o 2 after delivering El. care started late at 16 weeks on 11.21.2021. care regular overall after starting care. Infant was born at 38 weeks gestation. Weighed 5 pounds 12 ounces. Agpars 9 and 9 at 1 and 5 minutes of life. Educational Status: MOB completed through the 11th grade. Reports can read, write, no issues with learning or comprehension. Has taken [employer] classes and reports goal of taking test in a few months. 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 MOB reports to have money saved until able to get back to work. No identified financial concerns. Supplies: MOB states to have needed infant supplies including car eat, bassinett, clothing, diapers, wipes, breast pump. Childcare/Caregiver(s): MOB plans to be primary caregiver. Transportation: Relies on Roberto's girlfriend to transport. Programs/Agencies Involved: Active with S for food and medical. Reports awareness of WIC and may apply in the future. Declines referral to [facility]. Active with Rina Castillo for counseling, sees Anika. Children Services/Legal Issues: DOMINIK reports to be on probation for theft at [facility]. History of children services after Jame was born. States had one visit and the case was closed. Denies other involvement with children services other than when DOMINIK was a minor. Behavioral Health Issues: Mental Health History: MOB has history of depression, anxiety, and self injury. MOB reports mood has been stable throughout the , and denies any concerns at this time. Denies any thoughts, plans, intent for suicide or history of such. DOMINIK does have history of psychiatric hospitalization as a teen in 2016. Endorses some depression after Jame was born, treated with antidepressants and the weaned self off. Substance Use History: MOB reports drug of choice is marijuana and has used for 3 years. Reports last use was in September 2020 before going into sober living/rehab. Denies alcohol, prescription pills, cocaine, methamphetamines, heroin, or other illicit drug use during (or history of such outside of ). Tobacco use until 2.5 months ago when DOMINIK states to have quit. Caffeine via Mountain Dew here and there during . Treatment History: Inpatient psychiatric hospitalization in 2016 related to family and school issues. History of Home based intervention with [facility] as a teen. History with [facility] in [place]. Currently involved with Rina Castillo. MOB reports was at a sober living/rehab called [facility] from September 2020 to December 07, 2020 for treatment related to Marijuana. MOB reports was mainly there though to support the FOB who entered the home at the same time. Family History: Not discussed. The FOB does reportedly had drug addiction issues and is in a community based corrections facility for treatment of substances. MOB reports GOLD's drug of choice is meth. Drug Screens: Maternal drug screen on 11.02.2020 negative. No further testing. Baby has a meconium drug screen pending. First urine was missed on the baby. Family/Social Stressors: Several housing situations during this including a sober living house, then to FOB's grandparents, and now at DOMINIK's brother's home for the last 3 months. Goal is to get own place when GOLD is released from his community based corrections in April. FOB incarcerated during this due to probation violation of getting high. Support Systems: MOB reports her brother and brother's girlfriend are helpful in practical matters. FOB is main emotional support. DOMINIK's mother has moved out of state, so family support is limited. Depression/Shaken Baby/Safe Sleeping: Information provided in writing and verbal discussion. ASSESSMENT: Met with MOB in room. MOB holding baby to breast, finishing up breast feeding. MOB calm, cooperative, and pleasant. Held good eye contact. MOB reports to feel to have needed baby supplies, enough finances to care for child, and that living situation is safe. MOB denies any active drug use. This account underwriter had received call from OBGYN during DOMINIK's with a handoff report, to ensure that MOB was seen at delivery. Concern related to MOB having substance issues and at that time the OBGYN had reportedly received call from a Nancy Hernandez a the sober house the MOB was living at. There were concerns at that time for issues related to marijuana, methamphetamines, and fentanyl. During today's assessment the MOB endorses staying at [facility] for issues related to marijuana only. MOB denies other illicit drug use history. Let MOB know that due to [place] Act, substance exposure in utero is to be reported to children services, though follow up be said agency is determined on a case by case basis. MOB did not voice any questions. Safe Plan of Care for related to substance use: MOB plans to abstain from future marijuana use, or other illicit drug use. If something changes regarding marijuana, would have MOB's brother help with care of children. Talked with MOB about not breast feeding while using marijuana. MOB voiced understanding. PLAN: MOB and baby to MOB's brother's home. Plan for [facility] referral. MOB has been given community resource information for [facility] and on mood and anxiety disorders. -MOISES Stevenson, FARSHAD *Information documented in this assessment generated with [employer] System*
[2021-04-18] MEDS: Prenatal Vits Tablet 1 TABLET PO (12:30)
--- NOTE | 2021-04-19 09:26 | CASEMGMT ---
Social Work Labor and Delivery Unit Call to [facility] ([facility]) [phone], and spoke with Dipika Dowd. Referral due to concerns for substance exposed infant in utero, with endorsed marijuana use in . Reported concerns about alleged use other other illicit drugs, though MOB's endorsement of only marijuana use. Reported MOB's endorsed treatment at [facility], father of baby history of meth use and current incarceration in a community based corrections due to this. Brief maternal and infant histories provided. Meconium drug screen for baby is pending No other services requested or indicated, other than monitoring for meconium drug screen results. -ARNOLD Ramos, CAPTAIN/CHECK AIRMAN
[2021-04-19 14:10] LABS: Pathology Specimen OB SEE PATHOLOGY REPORT
== END 2021-04-18 13:05 | disposition home or self-care (01) | DRG 560 ==
LOC: WPOUT 23:52 → WP 23:52
PROVIDERS: Admitting Provider Obstetrics & Gynecology; Visit Provider Obstetrics & Gynecology
DX: O36.5930 Maternal care for other known or suspected poor fetal growth, third trimester, not applicable or unspecified (principal); Z3A.38 38 weeks gestation of pregnancy; Z37.0 Single live birth; F17.210 Nicotine dependence, cigarettes, uncomplicated; O99.334 Smoking (tobacco) complicating childbirth; O70.0 First degree perineal laceration during delivery; O69.1XX0 Labor and delivery complicated by cord around neck, with compression, not applicable or unspecified
CPT/HCPCS: 59025; 59050; 80053; 83615; 84550; 85025; 86850; 86900; 86901; 87426; 88307; 99218; J7120; A4216; G0378

== ENCOUNTER 2022-01-09 10:08 | Outpatient (CLI) | payer MEDICAID, SELFPAY ==
[2022-01-09 12:04] LABS: Absolute Lymphocyte Count 2.58 X10^3/uL (0.83-4.51); Absolute Neutrophil Count 3.4 X10^3/uL (2.0-7.7); Basophil# 0.07 X10^3/uL; Basophil% 0.9 % (0-1); Eosinophil# 0.79 X10^3/uL; Eosinophils% 10.5 % (0-5); Hematocrit 39.7 % (37-47); Lymphocyte # 2.58 X10^3/ul (0.83-4.51); Lymphocyte % 34.3 % (19-41); Mean Corp Hgb Conc 32.7 g/dL (32-36); Mean Corpuscular Hgb 27.6 pg (27.0-32.0); Mean Corpuscular Volume 84.3 fL (81-99); Monocyte# 0.68 X10^3/uL; NRBC Flagged by Analyzer 0 % (0-5); Neutrophil # 3.38 X10^3/uL (2.7-7.7); Platelet Count 369 K/mm3 (150-450); RBC Distribution Width CV 13.5 % (11.6-14.6); RBC Distribution Width SD 41.9 fl (35.1-43.9); Red Blood Count 4.71 M/mm3 (4.2-5.4); White Blood Count 7.5 K/mm3 (4.4-11.0)
[2022-01-09 12:29] LABS: ALB/GLOB Ratio 0.9 RATIO (0.9-2.4); AST(SGOT) 20 U/L (15-37); Alanine Aminotransfer ALT/SGPT 77 U/L (13-56); Albumin, Serum 3.7 g/dL (3.2-5.0); Alkaline Phosphatase 132 U/L (45-117); Anion Gap 6 (5-15); BUN 8 mg/dL (7-18); BUN/Creat Ratio 12.8 RATIO (10-20); Chloride 108 mmol/L (98-107); Cholesterol 169 mg/dL (200); Creatinine, Serum 0.63 mg/dL (0.55-1.02); EST Glomerular Filtration Rate 127 mL/min (>60); Est Glom Filt Rate - Afr Amer 154 mL/min (>60); Globulin 4.1 g/dL (2.2-4.2); Glucose 93 mg/dL (74-106); High Density Lipoprotein 58 mg/dL; Protein, Total 7.8 g/dL (6.4-8.2); Sodium Level 138 mmol/L (136-145); Thyroid Stim Hormone (TSH) 1.05 uIU/mL (0.358-3.74); Triglycerides 97 mg/dL; Very Low Density Lipoprotein 19 mg/dL (5-40)
[2022-01-09 12:57] LABS: HIV - WCH Non-Reactive (Nonreactive); Hepatitis C Antibody Non-Reactive (Nonreactive); Vitamin D,25 Hydroxy 26.3 ng/mL
== END 2022-01-09 23:59 | disposition home or self-care (01) ==
LOC: BIMLAB 10:08
PROVIDERS: PCP Internal Medicine; Referring Provider Internal Medicine; Visit Provider Internal Medicine
DX: F19.11 Other psychoactive substance abuse, in remission (principal); F41.9 Anxiety disorder, unspecified; Z13.220 Encounter for screening for lipoid disorders
CPT/HCPCS: 36415; 80053; 80061; 82306; 84443; 85025; 86703; 86803

== ENCOUNTER 2022-06-18 10:31 | Emergency (ER) | payer MEDICAID, SELFPAY ==
[2022-06-18 10:32] VITALS: BP 130/85; PULSE 90; RESP 16; TEMP 36.6; O2SAT 97; BMI 32.2
--- NOTE | 2022-06-18 10:45 | EDS_ITS ---
HPI History of Present Illness Chief Complaint: Abscess Informant: patient Narrative Narrative: Presents requesting antibiotics for abscess right forearm. Reports relapse from injecting meth 11 days ago. Has not injected since. There was swelling since then which currently is getting smaller. She is at work she gets vomiting with Discomfort. She denies fevers or drainage. Has had previous ones in the past that would be self-limiting. She wears the Nexplanon for oral contraceptives. Denies antibiotic allergies. Prior similar symptoms: Yes PFSH PFSH Medical History Anxiety Depression Gestational hypertension IUGR (intrauterine growth restriction) depression Home Medications ascorbic acid (vitamin C) 500 mg capsule mg PO 01/06/22 [History Last Taken Unknown] cholecalciferol (vitamin D3) 10 mcg (400 unit) capsule 10 mcg PO DAILY 01/06/22 [History Last Taken Unknown] zinc PO DAILY 01/06/22 [History Last Taken Unknown] cephalexin 500 mg capsule 500 mg PO Q6 #40 caps 06/18/22 [Rx Last Taken Unknown] sulfamethoxazole 800 mg-trimethoprim 160 mg tablet (Bactrim DS) 1 tab PO Q12H #20 tabs 06/18/22 [Rx Last Taken Unknown] Allergy/AdvReac Type Severity Reaction Status Date / Time escitalopram [From Lexapro] Allergy Hives Verified 06/18/22 10:33 Family History Mother Hypertension Other Breast cancer Cancer Diabetes Social History number of children: 2 Smoking Status: Current every day smoker tobacco type: cigarettes Electronic Cigarette Use: with nicotine alcohol intake: never substance use type: former substance user, IV drugs and methamphetamine ROS ROS ED Constitutional Constitutional ED: Denies chills, fever(s) or sweats Eyes Eyes: Denies change in vision ENT ENT ED: Denies dysphagia or sore throat Cardiovascular Cardiovascular: Denies chest pain, leg edema, palpitations or racing heartbeat Respiratory/Chest Respiratory/Chest: Denies cough, dyspnea or dyspnea on exertion Gastrointestinal Gastrointestinal: Denies abdominal pain, diarrhea, nausea or vomiting Genitourinary Genitourinary ED: Denies dysuria, hematuria or urinary frequency Musculoskeletal Musculoskeletal: Denies back pain, extremity pain or neck pain Integumentary Reports abscess; Denies rash or wounds Neurologic Neurologic: Denies headache(s), paresthesias or weakness EXAM Physical Exam Const Vital Signs: 06/18/22 10:32 06/18/22 11:43 Temperature 97.9 F Temperature Source Temporal Pulse Rate 90 72 Respiratory Rate 16 15 Blood Pressure 130/85 H 126/77 H Blood Pressure Mean 100 Pulse Ox 97 98 Oxygen Delivery Method Room Air Positive well nourished and well developed General Appearance ED: well developed and NAD HEENT Reports moist mucous membranes normocephalic and atraumatic Eyes PERRL, EOMs intact bilaterally and conjunctivae normal General Eye ED: Yes normal appearance of both eyes Neck no lymphadenopathy and supple General: Negative for tenderness Chest Wall Chest: Negative for tenderness Resp normal respiratory effort and normal air movement Effort and Inspection: symmetric chest movement; Negative for respiratory distress Cardio regular rate, regular rhythm and no murmurs Peripheral Pulses: pulses 2+ throughout GI normal to inspection, nondistended, normoactive bowel sounds and non-tender Palpation: Negative for guarding or rebound tenderness present Back/Spine no CVA tenderness and no thoracic nor lumbar tenderness Extremity normal to inspection General Extremety ED: Yes tenderness; Negative for edema General Extremity: Negative for edema Neuro oriented x3 and no sensory deficits noted Sensorium / Orientation: awake and alert Skin Skin Narrative: Right forearm dorsal mid forearm 3 x 3 cm abscess with mild fluctuance there is no surrounding erythema. No active drainage. No streaking. MDM MDM MDM Narrative Medical decision making narrative: Patient nontoxic exam concerns for abscess is with her IV drug relapse. I r ecommended I&D however she states she only wants antibiotics. She did agree with x-ray radiopaque foreign bodies. This was obtained, Keflex and Bactrim started. 2 view right forearm reviewed by myself shows no radiopaque foreign body soft tissue swelling dorsal mid forearm. We discussed the patient continues to decline I&D. Prescription for antibiotics and return precautions. All questions were answered. Radiography Chest X-Ray - ED: Read by ED Physician Diagnostic Testing: Clinical Impression(s) from Imaging Studies Forearm X-Ray 06/18/22 11:00 IMPRESSION: Focal soft tissue swelling overlying the proximal aspect of the ulna. Electronically Signed: Anders Lipscomb MD at 11:36 EDT , Discharge Plan Triage Chief Complaint: Abscess ED Provider: Juventino Lantigua Dx/Rx/DC Orders Clinical Impression: Abscess of forearm, right, Hx of intravenous drug use, in remission, History of methamphetamine use Instructions: ED Abscess Antibiotic Treatment Only Prescriptions: New sulfamethoxazole-trimethoprim [Bactrim DS] 800-160 mg tablet 1 tab PO Q12H Qty: 20 0RF cephalexin [cephalexin] 500 mg capsule 500 mg PO Q6 Qty: 40 0RF No Action zinc PO DAILY ascorbic acid (vitamin C) 500 mg capsule PO cholecalciferol (vitamin D3) 10 mcg (400 unit) capsule 10 mcg PO DAILY Primary Care Provider: Michelle Gardner Referrals: Michelle Gardner MD [Primary Care Provider] - 3-5 Days if not improving Activity Restrictions/Additional Instructions: X-ray negative for radiopaque foreign bodies. He declined I&D today. Take antibiotic as prescribed. Return if any worsening symptoms. Disposition Disposition: Home, Self Care Discharge Date/Time: 06/18/22 11:43
[2022-06-18] MEDS: Smz/Tmp Ds Tablet 1 TABLET PO (10:53)
[2022-06-18] MEDS: Cephalexin 250 MG Capsule 500 MG PO (10:53)
--- NOTE | 2022-06-18 11:00 | RAD_ITS ---
STUDY: X-RAY - RIGHT RADIUS AND ULNA REASON FOR EXAM: Female, 21 years old. Abscess TECHNIQUE: 2 view(s) of the forearm. COMPARISON: None. FINDINGS: There is evidence of focal soft tissue swelling measuring 2.2 cm x 1.1 cm overlying the dorsal aspect of the proximal ulna. Normal visualized radius. Normal visualized ulna. RAD/Forearm 2 Views IMPRESSION: Focal soft tissue swelling overlying the proximal aspect of the ulna. Electronically Signed: Anders Lipscomb MD at 11:36 EDT ,
[2022-06-18 11:43] VITALS: BP 126/77; PULSE 72; RESP 15; O2SAT 98
== END 2022-06-18 11:43 | disposition home or self-care (01) ==
PROVIDERS: Emergency Provider Emergency Medicine; PCP Internal Medicine; Visit Provider Emergency Medicine
DX: L02.413 Cutaneous abscess of right upper limb (principal); F17.210 Nicotine dependence, cigarettes, uncomplicated
CPT/HCPCS: 73090; 99283

== ENCOUNTER → 2022-07-17 | Outpatient (CLI) | payer MEDICAID, SELFPAY ==
[2022-07-17 10:02] LABS: Absolute Lymphocyte Count 2.84 X10^3/uL (0.83-4.51); Absolute Neutrophil Count 5.9 X10^3/uL (2.0-7.7); Basophil# 0.07 X10^3/uL; Basophil% 0.7 % (0-1); Eosinophil# 0.64 X10^3/uL; Eosinophils% 6.4 % (0-5); Hematocrit 40.8 % (37-47); Hemoglobin 13.6 g/dL (12.0-15.0); Lymphocyte # 2.84 X10^3/ul (0.83-4.51); Lymphocyte % 28.4 % (19-41); Mean Corp Hgb Conc 33.3 g/dL (32-36); Mean Corpuscular Hgb 27.6 pg (27.0-32.0); Mean Corpuscular Volume 82.9 fL (81-99); Mean Platelet Vol. 9.3 fl (6.2-12.0); Monocyte# 0.46 X10^3/uL; Monocyte% 4.6 % (0-10); NRBC Flagged by Analyzer 0 % (0-5); Neutrophil % 59.1 % (47-70); Platelet Count 431 K/mm3 (150-450); RBC Distribution Width CV 13.2 % (11.6-14.6); RBC Distribution Width SD 39.5 fl (35.1-43.9); Red Blood Count 4.92 M/mm3 (4.2-5.4)
[2022-07-17 10:40] LABS: ALB/GLOB Ratio 0.8 RATIO (0.9-2.4); AST(SGOT) 44 U/L (15-37); Alanine Aminotransfer ALT/SGPT 101 U/L (13-56); Albumin, Serum 3.4 g/dL (3.2-5.0); Alkaline Phosphatase 158 U/L (45-117); Anion Gap 6 (5-15); BUN 10 mg/dL (7-18); BUN/Creat Ratio 13.5 RATIO (10-20); Bilirubin, Direct 0.09 mg/dL (0.00-0.30); Calcium,Total 9.3 mg/dL (8.5-10.1); Chloride 106 mmol/L (98-107); Creatinine, Serum 0.74 mg/dL (0.55-1.02); EST Glomerular Filtration Rate 105 mL/min (>60); Est Glom Filt Rate - Afr Amer 127 mL/min (>60); Globulin 4.4 g/dL (2.2-4.2); Glucose 121 mg/dL (74-106); Potassium 3.7 mmol/L (3.5-5.1); Protein, Total 7.8 g/dL (6.4-8.2); Sodium Level 137 mmol/L (136-145)
[2022-07-17 11:19] LABS: HIV - WCH Non-Reactive (Nonreactive); Hepatitis B Surface Antigen Non-Reactive (Nonreactive); Hepatitis C Antibody Non-Reactive (Nonreactive)
[2022-07-17 12:10] LABS: Chlamydia Trachomatis by PCR Negative (Negative); Neisserai gonorrhoeae by PCR Negative (Negative); Probe Check PASS; Sample Adequacy Control PASS; Specimen Processing Control PASS; Trichomonas Vag DNA by PCR Negative (Negative)
== END | disposition home or self-care (01) ==
LOC: LAB 09:21
PROVIDERS: PCP Internal Medicine; Visit Provider Family Medicine
DX: F15.11 Other stimulant abuse, in remission (principal); Z11.3 Encounter for screening for infections with a predominantly sexual mode of transmission
CPT/HCPCS: 36415; 80053; 82248; 85025; 86703; 86803; 87340; 87491; 87591; 87661

== ENCOUNTER 2023-01-26 02:21 | Emergency (ER) | payer MEDICAID, SELFPAY ==
[2023-01-26 02:22] VITALS: BP 146/81; PULSE 107; RESP 18; TEMP 36.4; O2SAT 100; BMI 29.0
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
== END 2023-01-26 02:55 | disposition home or self-care (01) ==
LOC: ED 02:53
PROVIDERS: Emergency Provider Emergency Medicine; PCP Internal Medicine; Visit Provider Emergency Medicine
DX: B00.1 Herpesviral vesicular dermatitis (principal); F17.210 Nicotine dependence, cigarettes, uncomplicated; F41.9 Anxiety disorder, unspecified; F32.A Depression, unspecified; Z79.899 Other long term (current) drug therapy
CPT/HCPCS: 99282

== ENCOUNTER 2023-04-30 12:58 | Emergency (ER) | payer MEDICAID, SELFPAY ==
[2023-04-30 12:59] VITALS: BP 117/72; PULSE 87; RESP 18; TEMP 36.2; O2SAT 98; BMI 29.2
--- NOTE | 2023-04-30 13:29 | EDS_ITS ---
HPI History of Present Illness Chief Complaint: Dental Informant: patient Onset/Context/Timing Onset: Yesterday Context: Gradual Onset Timing: Continuous Quality: ache Location: left maxillary molars Current Severity: Moderate Maximum Severity: Moderate Worsened by: eating/chewing Associated Symptoms Assocated Symptom - Dental: Negative for fever, jaw swelling or face swelling Narrative Narrative: 22-year-old female has been having left maxillary molar pain with eating for the last month or 2, and in the past day or last it has been hurting all the time even when she is not eating. She has noticed no swelling but she currently is in outpatient rehab for IV drug use and someone there told her that her face looked a little swollen which she has not noticed. Sure to call a dentist today but they were at lunch so she presents to the ER. [facility] Medical History Anxiety Depression Gestational hypertension IUGR (intrauterine growth restriction) depression Home Medications bupropion HCl 150 mg 24 hr tablet, extended release 150 mg PO DAILY 01/26/23 [History Last Taken Unknown] sertraline 50 mg tablet 50 mg PO DAILY 01/26/23 [History Last Taken Unknown] amoxicillin 500 mg tablet 500 mg PO TID #30 tabs 04/30/23 [Rx Last Taken Unknown] Allergy/AdvReac Type Severity Reaction Status Date / Time escitalopram [From Lexapro] Allergy Hives Verified 06/18/22 10:33 Family History Mother Hypertension Other Breast cancer Cancer Diabetes Social History number of children: 2 Smoking Status: Current every day smoker tobacco type: cigarettes Electronic Cigarette Use: with nicotine alcohol intake: never substance use type: former substance user, IV drugs and methamphetamine ROS ROS ED Constitutional Constitutional ED: Denies chills or fever(s) Eyes Eyes: Denies change in vision or double vision ENT ENT ED: Reports dental pain; Denies sinus pain or throat swelling Cardiovascular Cardiovascular: Denies chest pain or palpitations Respiratory/Chest Respiratory/Chest: Denies cough or dyspnea Integumentary Denies abscess or rash Neurologic Neurologic: Denies headache(s), paresthesias or weakness EXAM Physical Exam Const Vital Signs: 04/30/23 12:59 Temperature 97.2 F L Temperature Source Temporal Pulse Rate 87 Respiratory Rate 18 Blood Pressure 117/72 Blood Pressure Mean 87 Pulse Ox 98 Oxygen Delivery Method Room Air Positive well nourished and well developed General Appearance ED: well developed and NAD HEENT HEENT Narrative: Tender at teeth #14 and 15. No gross abnormality. No trismus. No abscess or external facial swelling/tenderness. Normal gingiva no bleeding or lesions. Hard palate normal. All oral mucosa otherwise normal-appearing. Tongue normal no elevation. Face and Sinus: sinuses nontender Throat: posterior oropharynx normal Eyes PERRL and EOMs intact bilaterally Neck no lymphadenopathy and supple Resp normal respiratory effort Neuro oriented x3 and CN's II-XII intact bilaterally Sensorium / Orientation: alert Gait (Neuro): normal gait Psych mental status grossly normal and thought process normal Skin no rashes or lesions noted and no wounds MDM MDM MDM Narrative Medical decision making narrative: Patient states she had a root canal in 1 of these teeth in the past cannot remember which one, I cannot tell by looking. I think it is certainly reasonable to put her on amoxicillin to prevent an abscess but certainly she does not have any acute evidence of infection at this time. Dental follow-up advised. Discharge Plan Triage Chief Complaint: Dental ED Provider: Yuan Campos Dx/Rx/DC Orders Clinical Impression: Odontalgia Instructions: ED Dental Pain Prescriptions: New amoxicillin 500 mg tablet 500 mg PO TID Qty: 30 0RF No Action sertraline 50 mg tablet 50 mg PO DAILY bupropion HCl 150 mg tablet extended release 24 hr 150 mg PO DAILY Label Comments: take 1 tablet by mouth every morning Primary Care Provider: Michelle Gardner Referrals: Michelle Gardner MD [Primary Care Provider] - Dentist,Your [STAFF PHYSICIAN] - As soon as possible (See attached resource list if you need free/low-cost option) Disposition Disposition: Home, Self Care
[2023-04-30] MEDS: Naproxen 250 MG Tablet 500 MG PO (13:34)
[2023-04-30] MEDS: AMOXICILLIN 500 MG CAPSULE PO (13:34)
== END 2023-04-30 13:38 | disposition home or self-care (01) ==
PROVIDERS: Emergency Provider Emergency Medicine; PCP Internal Medicine; Visit Provider Emergency Medicine
DX: K08.89 Other specified disorders of teeth and supporting structures (principal); F17.210 Nicotine dependence, cigarettes, uncomplicated
CPT/HCPCS: 99283

== ENCOUNTER 2024-01-04 13:44 | Emergency (ER) | payer MEDICAID, SELFPAY ==
[2024-01-04 13:45] VITALS: BP 116/78; PULSE 111; RESP 20; TEMP 36.7; O2SAT 98; BMI 35.2
--- NOTE | 2024-01-04 14:13 | EDS_ITS ---
HPI HPI - GI History of Present Illness Chief Complaint: Foreign Body Informant: patient Narrative Narrative: Patient presents after feeling she got a pill stuck in her throat. About 3-3 and half hours ago she swallowed a [employer] cold and flu gelcap orange in color. She points to the right side of her throat where her vallecula would be. She feels it got stuck there. No trouble breathing. She states it is sore in the area every time she swallows. But she is able to eat and drink. Of note, she is on day 5 of COVID. So she states she feels achy and sore all over but it does not sound like it changed with this. No history of GERD. [facility] Medical History Anxiety Depression Gestational hypertension IUGR (intrauterine growth restriction) depression Home Medications bupropion HCl 150 mg 24 hr tablet, extended release 150 mg PO DAILY 01/26/23 [History Last Taken Unknown] sertraline 50 mg tablet 50 mg PO DAILY 01/26/23 [History Last Taken Unknown] amoxicillin 500 mg tablet 500 mg PO TID #30 tabs 04/30/23 [Rx Last Taken Unkno wn] naproxen 500 mg tablet (Naprosyn) 500 mg PO BID PRN pain #10 tabs 01/04/24 [Rx Last Taken Unknown] Allergy/AdvReac Type Severity Reaction Status Date / Time escitalopram [From Lexapro] Allergy Hives Verified 06/18/22 10:33 Family History Mother Hypertension Other Breast cancer Cancer Diabetes Social History number of children: 2 Smoking Status: Current every day smoker tobacco type: cigarettes Electronic Cigarette Use: with nicotine alcohol intake: never substance use type: former substance user, IV drugs and methamphetamine ROS ROS ED Constitutional Constitutional ED: Reports subjective ENT ENT ED: Reports sore throat and other Details: See HPI ; Denies rhinorrhea Cardiovascular Cardiovascular: Denies chest pain or palpitations Respiratory/Chest Respiratory/Chest: Denies cough or dyspnea Gastrointestinal Gastrointestinal: Denies diarrhea, nausea or vomiting Musculoskeletal Musculoskeletal: Reports myalgias Integumentary Denies rash Neurologic Neurologic: Denies headache(s) Psychiatric Psychiatric: Reports anxiety Hematologic/Lymphatic Hematologic/Lymphatic: Denies easy bleeding or easy bruising Allergic/Immunologic Allergic/Immunologic ED: Denies urticaria EXAM Physical Exam Narrative Exam Narrative: CONSTITUTIONAL: Patient is nontoxic in appearance. The patient looks comfortable. Work of breathing looks normal. She carries on a normal conversation is sitting very comfortably in bed. HEENT: No notable trauma. Mucous membranes moist. No sinus tenderness. She is able to swallow well. There is no coughing or gagging. Her voice is normal. Oropharynx is normal visually. EYES: No conjunctival injection. No proptosis. NECK:No JVD. No stridor. No swelling or notable tenderness. No asymmetry. CARDIOVASCULAR: Regular rate. Regular rhythm. No notable murmur. No JVD. RESPIRATORY: No respiratory distress. Breathing is unlabored. No wheezes. No rhonchi. No rales. No pain with breaths. GASTROINTESTINAL: Not distended. Bowel sounds are normal. No tenderness. GENITOURINARY: No CVA tenderness. NEUROLOGICAL: Patient is alert and appropriate. No focal deficit noted. SKIN: No noted rashes. No diaphoresis. PSYCHIATRIC: Patient is calm. Mood is appropriate. Const Vital Signs: 01/04/24 13:45 Temperature 98.1 F Temperature Source Temporal Pulse Rate 111 H Respiratory Rate 20 H Blood Pressure 116/78 Blood Pressure Mean 90 Pulse Ox 98 Oxygen Delivery Method Room Air MDM MDM MDM Narrative Medical decision making narrative: I explained to the patient that she likely has irritation from the contents of the pill. But these would dissolve and go away on their own. There is nothing that I can do to pull this out. I do not think she needs endoscopy. This should go away on its own. I do not think there is a real benefit to PPI. I would be concerned if I gave her lidocaine she might use this too much. We discussed maintaining hydration, drinking fluids, avoiding acidic or spicy foods. If she has any trouble with coughing or breathing come in. She did at the and request something because she still has diffuse soreness from COVID. Discharge Plan Triage Chief Complaint: Foreign Body ED Provider: Mic Baker Dx/Rx/DC Orders Clinical Impression: COVID, Myalgia, Pill esophagitis Instructions: ED Esophageal Foreign Body, Resolved Prescriptions: New naproxen [Naprosyn] 500 mg tablet 500 mg PO BID PRN (Reason: pain) Qty: 10 0RF No Action sertraline 50 mg tablet 50 mg PO DAILY bupropion HCl 150 mg tablet extended release 24 hr 150 mg PO DAILY Patient Comments: take 1 tablet by mouth every morning amoxicillin 500 mg tablet 500 mg PO TID Qty: 30 0RF Primary Care Provider: Michelle Gardner Referrals: Michelle Gardner MD [Primary Care Provider] - 3-5 Days if not improving Disposition Disposition: Home, Self Care
--- OUTSIDE RECORDS SUMMARY | 2024-01-04 19:08 | XMS RPT_ITS | CCD ---
Author Name Unknown Address [address] [place] [address] Organization [facility] Care Team Providers Care Customer Service Attendant Name Role Phone RONALDO MCLAUGHLIN Unavailable Unavailable ARIE BROWN Unavailable Unavailab le DEMETRIUS, VICTORIANO O Unavailable Unavailable ELIEL WARREN Unavailable Unavailable ARIE BROWN Unavailable Unavailab le DEMETRIUS, VICTORIANO O Unavailable Unavailable REFERRED, SELF Unavailable Unavailable DEMETRIUS, VICTORIANO Santiago Unavailable Unavailable DEMETRIUS VICTORIANO Santiago Unavailable Unavailable Kenny Marin R Unavailable Unavailable Kenny Marin R Unavailable Unavailable Kenny Marin Unavailable Unavailable STEPHEN CHAVEZ Admitting Unavailable STEPHEN CHAVEZ Attending Unavailable STEPHEN CHAVEZ Primary Care Unavailable [facility] Admitting Unavaila ble HEATHER, [facility] Attending Unavaila ble HEATHER, [facility] Primary Care Unavaila ble MARIA E ONOFRE M Admitting Unavailable MARIA E ONOFRE Attending Unavailable VICTORIANO ROMO MD Referring Unavailable MARIA E ONOFRE Primary Care Unavailable VICTORIANO ROMO MD Consulting Unavailable PROVIDER, UNKNOWN Consulting Unavailable NIVIA SWANSON Admitting Unavailable NIVIA SWANSON Attending Unavailable VICTORIANO ROMO MD Referring Unavailable NIVIA SWANSON Primary Care Unavailable VICTORIANO ROMO MD Consulting Unavailable PROVIDER, UNKNOWN Consulting Unavailable STEPHEN CHAVEZ Admitting Unavailable STEPHEN CHAVEZ Attending Unavailable STEPHEN CHAVEZ Primary Care Unavailable VICTORIANO ROMO MD Consulting Unavailable PROVIDER, UNKNOWN Consulting Unavailable Unavailable Primary Care Provider Unavailabl e Allergies Allergy Classification Reported Allergen(s) Allergy Type Date of Onset Reaction(s) Facility (1 source) escitalopram; Translations: [ESCITALOPRAM OXALATE] Drug Allergy 02-27-2016 [facility] Repository (1 source) escitalopram; Translations: [Lexapro] Drug Allergy [facility] Repository (1 source) Escitalopram Drug Allergy 02-28-2021 BRENDA Work Phone: Medications Current Medications Medication Drug Class(es) Dates Sig (Normalized) Sig (Original) Vit-Fe Fumarate-FA ( VITAMINS PO) (1 source) Vit-Fe Fumarate-FA ( VITAMINS PO) Take by mouth 0 Active Problems Problem Classification Problem Date Documented Da te Episodic/Chronic Abdominal pain (1 source) Lower abdominal pain; Translations: [Lower abdominal pain] Episodic Administrative/social admission (3 sources) Persons encountering health services in other specified circumstances; Translations: [Persons encountering health services in other specified circumstances] Onset: 06-30-2019 Episodic Other and delivery including normal (1 source) Intrauterine ; Translations: [Intrauterine ] Episodic Other upper respiratory infections (3 sources) Acute pharyngitis, unspecified; Translations: [Acute pharyngitis, unspecified] Onset: 06-28-2019 Episodic Spondylosis; intervertebral disc disorders; other back problems (3 sources) Cervicalgia; Translations: [Cervicalgia] Onset: 06-27-2019 Episodic Results Test Name Value Interpretation Reference Range Facil ity Vital Signs Date Time Vital Sign Value Performing Clinician Ranjeet colemany 02-28-2021 19:07-0400 Body Temperature 98.01 [degF] Val GUTIERREZ Work Phone: 02-28-2021 19:07-0400 BP Diastolic 77 mm[Hg] Val GUTIERREZ Work Phone: 02-28-2021 19:07-0400 BP Systolic 122 mm[Hg] Val GUTIERREZ Work Phone: 02-28-2021 19:07-0400 Pulse (Heart Rate) 100 /min Val GUTIERREZ Work Phone: 02-28-2021 19:07-0400 Pulse Oximetry 98 % Val GUTIERREZ Work Phone: 02-28-2021 19:07-0400 Respiratory Rate 18 /min Val Pina [employer] Work Phone: Encounters Encounter Date Encounter Type Care Provider Facility Start: 02-28-2021 End: 02-28-2021 Emergency department patient visit Val Pina Work Phone: [facility] Procedures Date Procedure Procedure Detail Performing Clinician Start: 02-28-2021 Urnls dip stick/tabl et rgnt auto w/o microscopy Val Pina Work Phone: Plan of Treatment Date Care Activity Detail Author Start: 07-24-2021 Influenza vaccination Flu vacc ine (Season Ended) [employer] Work Phone: Start: 2016 COVID-19 Vaccine (1) COVID-19 Vaccin e (1) [employer] Work Phone: Payers Date Payer Category Payer Medicaid 2000 Unknown [id number] 2000 Unknown [id number] Medicaid [id number] Unknown [id number] Social History Date Type Detail Facility Start: 02-28-2021 Tobacco smoking stat [facility] Current every day smoker [facility] [facility] Phone: Start: 02-28-2021 Cigarettes smoked current (pack per day) - Reported [employer] Work Phone: Start: 02-28-2021 Tobacco use and exposure Never used [employer] Work Phone: Start: 02-28-2021 Alcohol intake Ex-drinker (finding) [employer] Work Phone: Sex Assigned At Not on file [employer] Work Phone: Exposure to SARS-CoV -2 (event) Yes [facility] Phone: Progress note 04-22-2022 Note Date & Type Note Facility 04-22-2022 Note HNO ID: [id number] Author: RT Win(R) Service: Radiology Author Type: Technologist Type: Progress Notes Filed: 04/22/2022 9:14 AM Note Text: Radiology Service Progress Note PATIENT NAME: Lewis aHrmon DATE OF SERVICE: April 22, 2022 TIME: 9:01 AM PATIENT IDENTITY VERIFICATION COMPLETED USING TWO (2) IDENTIFIERS: Name and Date of confirmed by patient verbally. FALL SCREENING: Has the patient had 2 falls in the last year or 1 fall with injury or currently using an Ambulatory Assistive Device (Walker, Cane, Wheelchair, Crutches, etc.)? No PATIENT GENDER DATA: Female. status: : No status: NO. PATIENT RELEVANT IMPLANT DATA REVIEWED: Yes RADIOLOGY DEPARTMENT: General X-ray: Exam(s) Completed: Lower Extremity X-Ray(s): Foot, Bilateral and Wt. Bearing PERIPHERAL IV DATA: Not applicable SIGNED BY: RT Win(R) April 22, 2022 9:01 AM [facility] Summary Purpose Family History No Family History Records FoundNo Family History Records FoundNo Family History Records FoundNo Family History Records FoundNo Family History Records FoundNo Family History Records FoundNo Family History Records Found Advance Directives No Advanced Directives Records FoundNo Advanced Directives Records FoundNo Advanced Directives Records FoundNo Advanced Directives Records FoundNo Advanced Directives Records FoundNo Advanced Directives Records FoundNo Advanced Directives Records Found Discharge Instructions * Instructions* Val Pina MD - 02/28/2021 These go directly to [facility] labor and delivery. If you start having severe abdominal painand your water breaks boat puller to the side of the road and call 911. * Attachments The following attachments cannot be sent through Care Everywhere. * : Weeks 32 to 34 (Austrian) documented in this encounter Assessments Diagnosis Lower abdominal pain- Primary Abdominal pain, other specified site Intrauterine Additional Source Comments INFORMATION SOURCE (unrecogn ized section and content) DATE CREATED AUTHOR AUTHOR'S ORGANIZ ATION 05/18/2018 [facility] DATE CREATED AUTHOR AUTHOR'S ORGANIZ ATION 03/19/2019 [facility] DATE CREATED AUTHOR AUTHOR'S ORGANIZ ATION 07/12/2019 [facility] DATE CREATED AUTHOR AUTHOR'S ORGANIZ ATION 08/23/2020 [facility] DATE CREATED AUTHOR AUTHOR'S ORGANIZ ATION 03/06/2021 [facility] DATE CREATED AUTHOR AUTHOR'S ORGANIZ ATION 04/22/2022 [facility] Reason for Visit (unrecogniz ed section and content) FOR RECORDS PERTAINING TO PATIENTS WHO ARE OR HAVE BEEN ENROLLED IN A CHEMICAL DEPENDENCY/SUBSTANCEABUSE PROGRAM, SOME INFORMATION MAY BE OMITTED. This clinical summary was aggregated from multiple sources. Caution should be exercised in using it in the provision of clinical care. This summary normalizes information from multiple sources, and as a consequence, information in this document may materially change the coding, format and clinical context of patient data. In addition, data may be omitted in some cases. CLINICAL DECISIONS SHOULD BE BASED ON THE PRIMARY CLINICAL RECORDS. [facility]. provides no warranty or guarantee of the accuracy or completeness of information in this document.
== END 2024-01-04 14:29 | disposition home or self-care (01) ==
PROVIDERS: Emergency Provider Emergency Medicine; PCP Internal Medicine; Visit Provider Emergency Medicine
DX: U07.1 COVID-19 (principal); K20.80 Other esophagitis without bleeding; F17.210 Nicotine dependence, cigarettes, uncomplicated; M79.10 Myalgia, unspecified site
CPT/HCPCS: 99282

== ENCOUNTER 2025-01-16 03:38 | Emergency (ER) | payer MEDICAID, SELFPAY ==
[2025-01-16] VITALS (8 sets, daily range): BP systolic 107–124; BP diastolic 43–89; PULSE 73–111; RESP 16–22; TEMP 36.6–36.9; O2SAT 96–100; BMI 31.6
[2025-01-16] MEDS: Ipratropium/Albuterol Sulfate 3 ML AMPUL.NEB INHALATION (04:51)
[2025-01-16] MEDS: Albuterol 2.5 MG/3 ML VIAL.NEB. INHALATION (04:51)
[2025-01-16] MEDS: dexAMETHasone 4 MG Tablet 8 MG PO (05:04)
--- NOTE | 2025-01-16 05:57 | ED.VIS.DYS ---
HPI History of Present Illness Chief Complaint: Asthma Informant: patient Narrative Narrative: History of asthma vapes cough for approximately 10 days. No fevers or myalgias. Se[facility] days ago chest x-ray negative nasal swabs negative. Provided inhaler, Tessalon Perles along with prednisone. She does not take prednisone due to cause anxiety symptoms. Increasing dyspnea and wheeze. She left her inhaler at her mother's house. States currently dry cough. States she feels swollen in the outside of her throat. No trouble swallowing. [facility] Medical History Asthma Gestational hypertension Depression Anxiety depression IUGR (intrauterine growth restriction) Home Medications ?Medication ?Instructions ?Recorded ?Last Taken ?Type albuterol sulfate 90 mcg/actuation 2 puff inhalation Q4H PRN PRN 01/16/25 Unknown History aerosol inhaler shortness of breath or wheezing cetirizine 10 mg capsule (All Day 10 mg PO DAILY 01/16/25 Unknown History Allergy (cetirizine)) dexamethasone 6 mg tablet 12 mg (2 x 6 mg) PO X1 #2 tabs 01/16/25 Unknown Rx vitamin B complex 1 tab PO DAILY 01/16/25 Unknown History Allergy/AdvReac Type Severity Reaction Status Date / Time escitalopram (From Lexapro) Allergy Hives Verified 01/16/25 03:55 prednisone AdvReac anxiety Verified 01/16/25 03:55 Family History Mother Hypertension Other Breast cancer Cancer Diabetes Social History number of children: 2 Smoking Status: Current every day smoker tobacco type: e-cigarettes Electronic Cigarette Use: with nicotine alcohol intake: never substance use type: former substance user, IV drugs and methamphetamine ROS ROS ED Constitutional Constitutional ED: Denies chills, fever(s) or sweats ENT ENT ED: Denies sore throat Cardiovascular Cardiovascular: Denies chest pain, leg edema, palpitations or racing heartbeat Respiratory/Chest Respiratory/Chest: Reports cough and dyspnea; Denies dyspnea on exertion Gastrointestinal Gastrointestinal: Denies abdominal pain, diarrhea, nausea or vomiting Genitourinary Genitourinary ED: Denies dysuria, hematuria or urinary frequency Musculoskeletal Musculoskeletal: Denies back pain, extremity pain or neck pain Integumentary Denies rash or wounds Neurologic Neurologic: Denies headache(s), paresthesias or weakness EXAM Physical Exam Const Vital Signs: 01/16/25 03:40 01/16/25 03:44 01/16/25 03:45 Temperature 97.8 F 98.4 F 98.4 F Temperature Source Temporal Oral Oral Pulse Rate 73 78 Respiratory Rate 22 H 22 H Respiratory Effort Respiratory Pattern Blood Pressure 121/84 H 121/84 H Blood Pressure Mean 96 96 Pulse Ox 96 96 Oxygen Delivery Method Room Air Room Air 01/16/25 03:45 01/16/25 04:52 01/16/25 05:00 Temperature 98.4 F Temperature Source Oral Pulse Rate 98 104 H Respiratory Rate 16 18 Respiratory Effort Short of Breath Labored Accessory Muscle Use Respiratory Pattern Tachypnea Normal Blood Pressure 112/43 L Blood Pressure Mean 66 Pulse Ox 97 Oxygen Delivery Method Room Air Room Air 01/16/25 06:00 01/16/25 07:00 01/16/25 07:25 Temperature 98.5 F 98.1 F Temperature Source Oral Pulse Rate 85 75 Respiratory Rate 18 18 Respiratory Effort Respiratory Pattern Blood Pressure 107/64 124/89 H 110/75 Blood Pressure Mean 78 100 86 Pulse Ox 96 97 100 Oxygen Delivery Method Room Air Room Air 01/16/25 07:25 Temperature 98.5 F Temperature Source Pulse Rate 111 H Respiratory Rate 16 Respiratory Effort Respiratory Pattern Blood Pressure 124/89 H Blood Pressure Mean 100 Pulse Ox 97 Oxygen Delivery Method Positive well nourished and well developed General Appearance ED: well developed and NAD HEENT Reports moist mucous membranes HEENT Narrative: No lip or tongue swelling airway patent. No trismus. normocephalic and atraumatic Eyes General Eye ED: Yes normal appearance of both eyes Neck full ROM Chest Wall Chest: Negative for tenderness Resp Resp Narrative: Wheezing noted while talking, nontoxic. No retractions. Effort and Inspection: symmetric chest movement; Negative for respiratory distress Cardio regular rate, regular rhythm and no murmurs Peripheral Pulses: pulses 2+ throughout GI normal to inspection, nondistended, normoactive bowel sounds and non-tender Palpation: Negative for guarding or rebound tenderness present Extremity normal to inspection General Extremety ED: Negative for edema or tenderness General Extremity: Negative for edema Neuro oriented x3 and no sensory deficits noted Sensorium / Orientation: awake and alert Skin no rashes or lesions noted and no wounds MDM MDM MDM Narrative Medical decision making narrative: Interventions / MDM: Differential diagnosis: Asthma exacerbation, viral upper respiratory infection. Diagnosis considered but do not suspect: N/A My EKG interpretation: N/A Imaging independently reviewed and interpreted by myself: N/A External documents reviewed: N/A Test considered but not ordered:N/A ED course: Afebrile wheeze on exam pulse ox stable. She did not want to take prednisone however agreed with dexamethasone. This was ordered. Aerosol treatment ordered. Will reevaluate. 0650: Clinically improved reevaluation. She took dexamethasone with no side effects. Will dispense albuterol MDI as she left her mother's house. Will send to her pharmacy additional dose of dexamethasone repeat in 3 days. All questions answered. Re-evaluation: stable Disposition discussed with patient/family/significant other: Patient Case discussed with consulting clinician: N/A This note was generated with [employer] dictation software. It may contain incorrect words, spelling, and punctuation that were not noted in checking the note before signing. Discharge Plan Triage Chief Complaint: Asthma ED Provider: Juventino Lantigua Dx/Rx/DC Orders Clinical Impression: Asthma exacerbation, Upper respiratory infection, viral Instructions: ED URI, Viral W/ Wheezing (Adult), Asthma Prescriptions: New dexamethasone 6 mg tablet 12 mg PO X1 Qty: 2 0RF Rx Instructions: Take on 01/19/2025 No Action All Day Allergy (cetirizine) 10 mg capsule 10 mg PO DAILY albuterol sulfate 90 mcg/actuation HFA aerosol inhaler 2 puff inhalation Q4H PRN PRN (Reason: shortness of breath or wheezing) vitamin B complex Tablet 1 tab PO DAILY Primary Care Provider: Michelle Gardner Referrals: Michelle Gardner MD [Primary Care Provider] - 1 Week Print Language: Pashto Disposition Disposition: Home, Self Care Discharge Date/Time: 01/16/25 07:26
[2025-01-16] MEDS: Albuterol Sulfate 8 gm Inhaler (60 puffs) 2 PUFF INHALATION (07:24)
== END 2025-01-16 07:26 | disposition home or self-care (01) ==
PROVIDERS: Emergency Provider Emergency Medicine; PCP Internal Medicine; Visit Provider Emergency Medicine
DX: J45.901 Unspecified asthma with (acute) exacerbation (principal); J06.9 Acute upper respiratory infection, unspecified; F17.290 Nicotine dependence, other tobacco product, uncomplicated; Z79.51 Long term (current) use of inhaled steroids
CPT/HCPCS: 94640; 99282